=== PATIENT | female | born 1970 | race Caucasian/White ===

== ENCOUNTER → 2020-07-17 10:22 | Outpatient (BNVA) | payer OTHER, SELFPAY | PROVIDERS: PCP Internal Medicine; Referring Provider Internal Medicine; Visit Provider Obstetrics & Gynecology | DX: Z76.89 Persons encountering health services in other specified circumstances (principal) ==

== ENCOUNTER 2020-08-11 11:47 | Outpatient (REF) | payer SELFPAY ==
[2020-08-11 12:22] LABS: Cholesterol 168 mg/dL
== END 2020-08-11 11:48 | disposition home or self-care (01) ==
LOC: HO.LNC 11:47
PROVIDERS: Visit Provider Pathology Anatomic Pathology & Clinical Pathology
DX: Z13.220 Encounter for screening for lipoid disorders (principal)
CPT/HCPCS: 82465

== ENCOUNTER 2020-11-03 13:00 | Outpatient (REF) | payer SELFPAY ==
[2020-11-03 13:55] LABS: Cholesterol 181 mg/dL
== END 2020-11-03 13:01 | disposition home or self-care (01) ==
LOC: HO.LNC 13:00
PROVIDERS: Visit Provider Pathology Anatomic Pathology & Clinical Pathology
DX: Z13.89 Encounter for screening for other disorder (principal)
CPT/HCPCS: 36415; 82465

== ENCOUNTER 2021-02-19 09:15 | Outpatient (REF) | payer OTHER, SELFPAY ==
--- NOTE | ~2021-02-19 | CT_ITS ---
EXAMINATION: CT CHEST SCREENING CLINICAL INFORMATION: Lung cancer screening COMPARISON: None. TECHNIQUE: Multidetector volumetric CT imaging of the chest is performed without contrast using low dose technique. Additional 2D coronal and sagittal reformatted images and axial 3D maximum intensity projection (MIP) images are generated on the CT workstation. This CT examination was performed using dose optimization techniques as appropriate, variously including the following: *Automated exposure control *Adjustment of mA and/or kV according to patient size (this includes techniques or standardized protocols for targeted exams where dose is matched to indication/reason for exam; i.e. extremities or head) *Use of iterative reconstruction technique DLP: 48 mGy-cm FINDINGS: LUNGS: There is mild biapical pleural and parenchymal scarring. There is evidence of mild emphysema. There is a 4 x 6 mm peribronchial right upper lobe nodule axial image 114 series 5. There is a 2 mm right upper lobe nodule axial image 133 series 5. There is a 3 mm peripheral or subpleural right upper lobe nodule axial image 105 series 5. MEDIASTINUM: The mediastinum is normal. PLEURA: There is no pleural effusion. No pleural mass or thickening. AXILLA: No lymphadenopathy. UPPER ABDOMEN: Unremarkable OSSEOUS STRUCTURES: Unremarkable. CT/CT lung screening IMPRESSION: Mild emphysema. Small pulmonary nodules, largest measuring 4 x 6 mm in the right upper lobe. ASSESSMENT: Lung-RADS category 2: Benign RECOMMENDATION: Annual low-dose chest CT follow-up recommended.
== END 2021-02-19 09:16 | disposition home or self-care (01) ==
LOC: HO.CT 09:15
PROVIDERS: PCP Internal Medicine; Visit Provider Physician Assistant Medical
DX: Z12.2 Encounter for screening for malignant neoplasm of respiratory organs (principal); Z87.891 Personal history of nicotine dependence
CPT/HCPCS: 71271

== ENCOUNTER 2021-07-23 10:36 | Outpatient (REF) | payer OTHER, SELFPAY ==
[2021-07-23 12:54] LABS: Hematocrit 40.8 % (37-47); Mean Corpuscular HGB Conc 31.9 g/dl (31.0-35.0); Mean Corpuscular Hemoglobin 29.3 pg (27.0-33.0); Mean Corpuscular Volume 91.9 fL (80-98); Mean Platelet Volume 10.1 fL (9.4-12.3); Platelet Count 287 X10*3/uL (160-400); Red Blood Count 4.44 X10*6/uL (4.20-5.50); Red Cell Distribution Width 13.6 % (11.0-16.0); White Blood Count 6.7 X10*3/uL (4.8-10.8)
[2021-07-23 13:35] LABS: Thyroid Stimulating Hormone 1.57 uIU/mL (0.32-4.0)
[2021-07-23 16:04] LABS: CT PCR NOT DETECTED (Not Detect.); NG PCR NOT DETECTED (Not Detect.)
[2021-07-24 09:24] LABS: BV Int Neg Control Negative (Negative); BV Int Pos Control Positive (Positive)
[2021-07-24 21:51] LABS: Follicle Stimulating Hormone 8.6 mIU/mL
[2021-07-25 15:51] LABS: HPV mRNA E6/E7 rflx Not Detected (Not Detected)
== END 2021-07-23 10:37 | disposition home or self-care (01) ==
LOC: HO.LAB 10:36
PROVIDERS: PCP Internal Medicine; Visit Provider Advanced Practice Midwife
DX: Z01.419 Encounter for gynecological examination (general) (routine) without abnormal findings (principal); N93.9 Abnormal uterine and vaginal bleeding, unspecified; R23.2 Flushing; N92.1 Excessive and frequent menstruation with irregular cycle; F17.210 Nicotine dependence, cigarettes, uncomplicated; F12.90 Cannabis use, unspecified, uncomplicated; Z20.2 Contact with and (suspected) exposure to infections with a predominantly sexual mode of transmission; Z80.0 Family history of malignant neoplasm of digestive organs; Z80.41 Family history of malignant neoplasm of ovary
CPT/HCPCS: 36415; 83001; 84443; 85027; 87480; 87491; 87510; 87591; 87624; 87660; 88142

== ENCOUNTER 2021-08-17 15:44 | Outpatient (REF) | payer OTHER, SELFPAY ==
--- NOTE | ~2021-08-17 | US_ITS ---
EXAMINATION: US PELVIS AND TRANSVAGINAL CLINICAL INFORMATION: Abnormal uterine and vaginal bleeding. COMPARISON: Ultrasound pelvis 09/13/2019. TECHNIQUE: Ultrasound of the pelvis was performed using both transabdominal and transvaginal transducers along with Doppler. Transvaginal imaging was performed due to inadequate visualization transabdominally. FINDINGS: UTERUS: The uterus is anteverted and measures 8.7 x 4.4 x 5.7 cm in sagittal x AP x transverse dimensions. The double wall endometrial thickness is 0.4 mm. There is minimal fluid within the endometrial canal. The uterus is smooth in contour and has normal myometrial echogenicity. There are 2 echogenic lesions. The larger lesion in the right body of the uterus measures 2.8 x 2.3 x 2.9 cm, previously it measured 3.1 x 2.6 x 3.7 cm. The smaller lesion in the right lower body of the uterus measures 1.9 x 1.7 x 1.8 cm, previously it measured 1.5 x 0.9 x 1.2 cm. ADNEXA: Both ovaries are visualized. There is normal color flow to the adnexa. There is no ovarian torsion. There is no pelvic ascites or fluid collection. There are peristaltic bowel loops seen throughout the pelvis. Right ovary measures 2.4 x 1.3 x 1.4 cm and volume 2.8 mL. Left ovary measures 2.9 x 1.8 x 2.0 cm and volume 5.5 mL. There is an anechoic cyst measuring 1.6 x 1.9 x 1.7 cm. Previously the left ovary measured 3.6 x 1.9 x 2.9 cm. A cyst was visualized previous study likely a different cyst and measured 2.1 x 1.8 x 1.8 cm. US/US pelvic and transvaginal IMPRESSION: Two uterine fibroids as described above, grossly unchanged. Anechoic simple cyst left ovary. This is a different cyst from 2019. The right ovary is unremarkable. There is minimal fluid within the endometrial canal.
== END 2021-08-17 15:45 | disposition home or self-care (01) ==
LOC: HO.US 15:44
PROVIDERS: PCP Internal Medicine; Visit Provider Advanced Practice Midwife
DX: N93.9 Abnormal uterine and vaginal bleeding, unspecified (principal)
CPT/HCPCS: 76830; 76856

== ENCOUNTER → 2021-08-20 10:44 | Outpatient (BNVA) | payer OTHER, SELFPAY | PROVIDERS: PCP Internal Medicine; Visit Provider Advanced Practice Midwife ==

== ENCOUNTER 2021-09-24 12:01 | Outpatient (REF) | payer OTHER, SELFPAY ==
[2021-09-25 06:52] LABS: Follicle Stimulating Hormone 10.5 mIU/mL
== END 2021-09-24 12:02 | disposition home or self-care (01) ==
LOC: HO.WFDLDS 12:01
PROVIDERS: Advanced Practice Midwife; Visit Provider Internal Medicine
DX: Z00.00 Encounter for general adult medical examination without abnormal findings (principal); I10 Essential (primary) hypertension; R23.2 Flushing; N95.1 Menopausal and female climacteric states
CPT/HCPCS: 36415; 83001

== ENCOUNTER 2022-03-04 13:47 | Outpatient (REF) | payer OTHER, SELFPAY ==
--- NOTE | ~2022-03-04 | CT_ITS ---
EXAMINATION: CT CHEST SCREENING CLINICAL INFORMATION: Nicotine dependence. COMPARISON: CT lung screening 02/19/2021. TECHNIQUE: Multidetector volumetric CT imaging of the chest is performed without contrast using low dose technique. Additional 2D coronal and sagittal reformatted images and axial 3D maximum intensity projection (MIP) images are generated on the CT workstation. This CT examination was performed using dose optimization techniques as appropriate, variously including the following: *Automated exposure control *Adjustment of mA and/or kV according to patient size (this includes techniques or standardized protocols for targeted exams where dose is matched to indication/reason for exam; i.e. extremities or head) *Use of iterative reconstruction technique DLP: 38 mGy-cm. FINDINGS: LUNGS: There is bilateral apical pleural thickening and parenchymal scarring. There is a 4 mm nodule right upper lobe axial image 111/6, a 2 mm nodule seen centrally in the right upper lobe axial image 16/4 and a 3 mm subpleural nodule right upper lobe axial image 94/6 are all stable. MEDIASTINUM: The thyroid lobes are symmetrical and normal. The central trachea and bronchi are widely patent. Heart size and the great vessels are normal caliber. No abnormal-sized mediastinal or hilar lymph nodes seen. No pericardial effusion. PLEURA: There is no pleural effusion. No pleural mass or thickening. AXILLA: No lymphadenopathy. UPPER ABDOMEN: Visualized liver, spleen, pancreas and bilateral adrenal glands are unremarkable. OSSEOUS STRUCTURES: No aggressive lytic or sclerotic process seen. CT/CT lung screening IMPRESSION: Stable pulmonary nodules, largest measuring 4 mm in the right upper lobe; previously it measured 4 x 6 mm. No new nodules seen. No abnormal mediastinal adenopathy. ASSESSMENT: Lung-RADS category 2: Benign. RECOMMENDATION: Low-dose annual CT chest.
== END 2022-03-04 13:48 | disposition home or self-care (01) ==
LOC: HO.CT 13:47
PROVIDERS: Visit Provider Physician Assistant Medical
DX: F17.210 Nicotine dependence, cigarettes, uncomplicated (principal)
CPT/HCPCS: 71271

== ENCOUNTER 2022-08-05 10:34 | Outpatient (REF) | payer OTHER, SELFPAY ==
--- NOTE | ~2022-08-05 | US_ITS ---
EXAMINATION: US THYROID CLINICAL INFORMATION: Nontoxic goiter, unspecified. COMPARISON: None TECHNIQUE: Linear transducer grayscale and color Doppler examination with attention to the region of the thyroid. FINDINGS: SIZE: Measurements of the thyroid lobes and nodules are given in sagittal, anteroposterior and transverse dimensions respectively. Right Thyroid Lobe: 4.8 x 1.4 x 1.8 cm, volume 6.3 mL. Parenchyma: The gland echotexture is homogeneous. Thyroid vascularity is normal. Left Thyroid Lobe: 4.1 x 1.1 x 1.6 cm, volume 3.8 mL. Parenchyma: The gland echotexture is homogeneous. Thyroid vascularity is normal. Isthmus: 0.2 cm in maximum AP dimension. Estimated total number of nodules greater than or equal to 1 cm: 0. Polysomnographer nodules are described as follows: 1. Location: Left mid. Size: 0.7 x 0.5 x 0.3 cm, volume 0.063 mL. Nodule characteristics: Composition: Cystic(0). ACR TI-RADS total points: 0 ACR TI-RADS category: 1 2. Location: Right mid. Size: 0.6 x 0.4 x 0.3 cm, volume 0.035 mL. Nodule characteristics: Composition: Cystic(0). ACR TI-RADS total points: 0 ACR TI-RADS category: 1 3. Location: Right mid. Size: 0.6 x 0.5 x 0.3 cm, volume 0.057 mL. Nodule characteristics: Composition: Cystic(0). ACR TI-RADS total points: 0 ACR TI-RADS category: 1 There are multiple tiny anechoic cysts seen throughout both lobes. NODES: No lymphadenopathy is seen in the tissue surrounding the thyroid gland. US/US thyroid IMPRESSION: 1. Small subcentimeter thyroid cysts, not suspicious. The thyroid gland is otherwise unremarkable. 2. TR1 (0 point) and TR 2 (2 points): 3. TR4 (4-6 points): FNA if more than or equal to 1.5 cm in maximum dimension, followup ultrasound in 1, 2, 3 and 5 years if 1 to 1.4 cm in maximum dimension. 4. TR5 (more than or equal to 7 points): FNA if more than or equal to 1 cm in maximum dimension, followup ultrasound every year for 5 years if 0.5 to 0.9 cm in maximum dimension.
== END 2022-08-05 10:35 | disposition home or self-care (01) ==
LOC: HO.US 10:34
PROVIDERS: PCP Internal Medicine; Visit Provider Internal Medicine
DX: E04.9 Nontoxic goiter, unspecified (principal)
CPT/HCPCS: 76536

== ENCOUNTER 2022-08-29 12:31 | Outpatient (REF) | payer OTHER, SELFPAY ==
[2022-08-30 23:48] LABS: Follicle Stimulating Hormone 28.4 mIU/mL
== END 2022-08-29 12:32 | disposition home or self-care (01) ==
LOC: HO.WFDLDS 12:31
PROVIDERS: Visit Provider Advanced Practice Midwife
DX: N95.1 Menopausal and female climacteric states (principal); R23.2 Flushing
CPT/HCPCS: 36415; 83001

== ENCOUNTER → 2023-01-24 10:40 | Outpatient (BNVA) | payer OTHER, SELFPAY | PROVIDERS: PCP Internal Medicine; Visit Provider Advanced Practice Midwife | DX: Z30.41 Encounter for surveillance of contraceptive pills (principal) | CPT/HCPCS: 99212 ==

== ENCOUNTER 2023-06-23 10:10 | Outpatient (AMB) | payer OTHER, SELFPAY ==
--- NOTE | 2023-06-23 10:19 | A.OFFPC_ITS ---
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 Accompanied by: Self / Same As Patient Allergies oxycodone [From PERCOCET] Adverse Reaction (Mild, Verified 06/23/23 10:31) NAUSEA/VOMITING Medication List - Last Reconciled 06/23/23 by Richmond Sanchez MD aspirin 81 mg PO DAILY ferrous sulfate, dried ER (Iron (dried)) 160 mg PO DAILY multivitamin 1 tab PO DAILY norethindrone acetate (Aygestin) 5 mg PO DAILY 30 days omega-3 fatty acids (Fish Oil Concentrate) 1,000 mg PO DAILY sertraline 50 mg PO DAILY 90 days Tobacco use date assessed: 06/23/23 Dental Screening Dental Screen Date: 06/23/23 Did you have a dental visit in the last 12 months?: Yes Did you have a dental problem in the last 6 months where you did not have access to dental care?: No Was dental information given to patient?: Patient has dentist HPI annual PE HPI Details Patient comes in today for her annual physical examination States that she feels okay She denies any headaches or dizziness Denies any chest pains, no SOB No nausea/vomiting, no abdominal pain No change in bowel habits noted Denies any acute urinary symptoms She has a follow up appt with gynecology in July 2023 for 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 chef's assistant 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 and pap smear Has CT lung screening scheduled for later this week (Friday) and also has her mammogram scheduled for this Friday at [facility] Had a normal screening colonoscopy done a couple of years ago (2020) and she will be due for repeat colonoscopy in 2030 [facility] Medical History Mixed hyperlipidemia Personal history of nicotine dependence Dysplasia of cervix, low grade (LASHAWN 1) Smoker Depression Mild anemia History of LEEP (loop electrosurgical excision procedure) of cervix complicating Surgical History History of colonoscopy (~07/12/21) History of cervical biopsy (~01/13/98) History of breast lump/mass excision (~12/30/08) Status post hysteroscopic ablation of endometrium (~12/18/17) Family History Mother Breast cancer, Onset Age: 68 Parkinson disease Father Diabetes Hypertension Hyperlipidemia CAD (coronary artery disease) Maternal Grandfather Colon cancer Sister Hyperlipidemia Hypothyroidism Social History Housing: House Alcohol intake: current Alcohol intake frequency: a few times a week Patient Tobacco Use Status: Current everyday Tobacco user Tobacco use type: Cigarette Cigarette Packs Per Day: 1 Cigarettes Per Day: 20.0 Years Smoked: 37 (onset 13yo) e-Cigarette/Vaping Use: Never Used Second Hand Smoke Exposure: No Substance Use Type: Marijuana service: No Current occupational status: employed 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 1. Little interest or pleasure in doing things: not at all 2. Feeling down, depressed, or hopeless: not at all 3. Trouble falling or staying asleep, or sleeping too much: not at all 4. Feeling tired or having little energy: not at all 5. Poor appetite or overeating: not at all 6. Feeling bad about yourself - or that you are a failure or have let yourself or your family down: not at all 7. Trouble concentrating on things, such as reading the newspaper or watching television: not at all 8. Moving or speaking so slowly that other people could have noticed. Or the opposite - being so fidgety or restless that you have been moving around a lot more than usual: not at all 9. Thoughts that you would be better off or of hurting yourself in some way: not at all Total score: 0 Depression Screening Interpretation: Negative (is doing well on Rx) 76217 - PHQ-9 Billing: Yes Source: Developed by Drs. Collin Camara, Rosalie Olivo, Ayaz Cheek and colleagues, with an educational renetta from [employer]. Thrive Questionnaire Date Thrive assessed: 06/23/23 I am a: Patient What is your living situation today?: I have a steady place to live Within the past 12 months, did the food you bought not last and you didn't have the money to get more?: Never true Within the past 12 months, did you worry whether your food would run out before you got money to buy more?: Never true Do you have trouble paying for medicines?: No Do you have trouble getting transportation to medical appointments?: No Do you have trouble paying your heating and electricity bill?: No Do you have trouble taking care of your child, family member or friend?: No Do you have trouble with day-to-day activities such as bathing, preparing meals, shopping, managing finances, etc.?: No Are you currently unemployed and looking for a job?: No Are you interested in more education?: No Please select the resources that you would like help with: None Currently or been in a relationship where the following occur: no concerns reported AUDIT C Alcohol Use Questionnaire (AUDIT-C) 1. How often do you have a drink containing alcohol?: 2-3 times a week 2. How many drinks containing alcohol do you have on a typical day when you are drinking?: 1 or 2 3. How often do you have six or more drinks on one occasion?: Never Total Score: 3 Score Reviewed/Action Taken: Yes ANNALISA-7 AMB Questionnaire ANNALISA-7 Date ANNALISA - 7 assessed: 06/23/23 Feeling nervous, anxious, or on edge: 3 = Nearly every day Not being able to stop or control worryin = Nearly every day Worrying too much about different things: 3 = Nearly every day Trouble relaxin = Nearly every day Being so restless that it is hard to sit still: 3 = Nearly every day Becoming easily annoyed or irritable: 3 = Nearly every day Feeling afraid as if something awful might happen: 3 = Nearly every day Total ANNALISA-7 score (0-4 normal; 5-9 mild; 10-14 moderate; 15-21 severe): 21 Source: Developed by Drs. Collin Camara, Rosalie Olivo, Ayaz Cheek and colleagues, with an educational renetta from [employer]. Review of Systems Const Denies chills, Denies fatigue, Denies fever(s), Denies headache(s) and Denies malaise Eyes Denies blurry vision, Denies change in vision, Denies irritation and Denies itchy eyes ENT Denies dysphagia, Denies dizziness, Denies otalgia, Denies headache(s), Denies nasal congestion, Denies neck pain, Denies odynophagia, Denies sinus pain and Denies sore throat Card Denies chest pain, Denies rapid heart rate, Denies irregular heart rhythm, Denies palpitations and Denies dyspnea Resp Denies chest congestion, Denies cough, Denies dyspnea and Denies wheezing GI Denies abdominal pain, Denies bloating, Denies constipation, Denies dysphagia, Denies heartburn, Denies diarrhea, Denies nausea, Denies odynophagia and Denies vomiting Denies hematuria, Denies urinary frequency, Denies dysuria, Denies urinary incontinence and Denies urinary urgency Musc Denies back pain, Denies arthralgias, Denies joint swelling, Denies muscle weakness and Denies neck pain Skin/Breast Denies breast pain, Denies breast mass, Denies change in pigmentation, Denies lesions, Denies rash and Denies unusual bruising Neuro Denies dizziness, Denies headache(s) and Denies paresthesias Psych Denies anxiety and Denies depression Endo Denies fatigue and Denies palpitations Pete/Lymph Denies easy bruising Aller/Immun Denies itchy eyes and Denies wheezing Physical exam (Primary Care) Vital Signs: Last Vital Signs Pulse 82 06/23/23 10:20 BP 120/76 06/23/23 10:20 Pulse Ox 97 06/23/23 10:20 Oxygen Delivery Method Room Air 06/23/23 10:20 BMI result Body Mass Index 19.5 Tobacco/Smoking Status: Tobacco use Status Tobacco use date assessed 06/23/23 06/23/23 10:24 Patient Tobacco Use Status Current everyday Tobacco 06/23/23 10:24 Tobacco use type Cigarette 06/23/23 10:24 e-Cigarette/Vaping Use Never Used 06/23/23 10:24 PHQ-9: PHQ-9 Score PHQ-9: Total score 0 06/23/23 10:24 Depression Screening Interpretation: Negative (is doing well on Rx) Thrive Assessment: Date of Thrive Assessment Date Thrive assessed 06/23/23 06/23/23 10:24 Currently or been in a relationship where the following occur: no concerns reported Const General: no acute distress, alert and awake Orientation/consciousness: patient oriented x3 [facility] Head: Yes normocephalic and Yes atraumatic Ears: external ears normal, TM's normal bilaterally and EAC's normal General nose exam: No nasal discharge present Face and sinus: Yes normal facial exam and Yes sinuses nontender Teeth and gingiva: dentition normal Throat: Yes posterior oropharynx normal and Yes tonsils normal (no TP congestion) Eyes Eyelids: Yes eyelids normal Conjunctivae: conjunctivae normal Pupils: Equal, round and reactive pupils present EOM: EOMs intact bilaterally Neck Neck: Yes no lymphadenopathy and Yes supple Thyroid: Thyroid normal Resp Auscultation: clear to auscultation bilaterally, no rales and no wheezes Cardio Rate: regular rate Rhythm: regular rhythm Heart sounds: no murmurs GI Palpation (GI): Soft to palpation, nontender and No hepatosplenomegaly present Auscultation: normal bowel sounds General: Yes no CVA tenderness Back/Spine/Pelvis Back: no CVA tenderness Thoracic/Lumbar Spine: thoracic and lumbar spine normal to inspection Skin Lesions: no lesions Rashes: no rashes Neuro General: patient oriented x3, moves all extremities, no focal motor deficits and CN's II-XI intact bilaterally Cranial nerves: Yes Equal, round and reactive pupils present Cognition (Neuro): normal cognition Gait exam (Neuro): Normal gait present Extrem General: Yes no clubbing, cyanosis or edema Assessment and Plan Assessment & Plan (1) Annual physical exam: Code(s): Z00.00 - Encounter for general adult medical examination without abnormal findings Plan: Check labs She is up-to-date with her screening colonoscopy - due for repeat in 2030 Is scheduled for her yearly chef's assistant exam and pap smear in July 2023 and will be getting her annual mammogram done at [facility] this Friday She currently still has her menstrual periods although she states that they are slowing down so she is not yet due to start osteoporosis screening (2) Enlarged thyroid gland: Code(s): E04.9 - Nontoxic goiter, unspecified Plan: Thyroid US done in July 2022 revealed small subcentimeter thyroid cysts, not suspicious. The thyroid gland is otherwise unremarkable Recommendation is at least a followup ultrasound every year for 5 years if 0.5 to 0.9 cm in maximum dimension but as she currently has no symptoms, would like to hold off for a year if possible (3) Mixed hyperlipidemia: Code(s): E78.2 - Mixed hyperlipidemia Plan: Reinforced low cholesterol diet Continue Fish Oil capsules 1000 mg BID Will recheck her fasting lipids ZAC for follow up (4) Mild anemia: Code(s): D64.9 - Anemia, unspecified Plan: Corrected on her labs done last year - continue Ferrous Sulfate 324 mg (65 Fe) 1 tablet QD Will recheck her CBC ZAC and continue to monitor her CBC regularly (5) Depression: Code(s): F32.9 - Major depressive disorder, single episode, unspecified Qualifiers: Depression Type: unspecified Qualified Code(s): F32.9 - Major depressive disorder, single episode, unspecified Plan: Continue Sertraline 50 mg QD - has been doing very well on her current Rx (6) Pulmonary nodule: Code(s): R91.1 - Solitary pulmonary nodule Plan: CT lung screening done in February 2022 revealed stable pulmonary nodules, the largest measuring 4 mm in the right upper lobe; previously it measured 4 x 6 mm. No new nodules seen. No abnormal mediastinal adenopathy. Recommend continue annual low dose CT monitoring - is scheduled for repeat CT later this week (7) Smoker: Code(s): F17.200 - Nicotine dependence, unspecified, uncomplicated Plan: Counseled again on smoking cessation Plan To return in 1 year for her next annual physical examination Orders: Orders Complete Blood Count Auto Diff Today Z00.00 - Encounter for general adult medical examination without abnormal findings Lipid Panel Today E78.00 - Pure hypercholesterolemia, unspecified, Z00.00 - Encounter for general adult medical examination without abnormal findings UA CC w/rflx Micro + Cult Today R30.0 - Dysuria, Z00.00 - Encounter for general adult medical examination without abnormal findings Vitamin D 25-OH Total Today E55.9 - Vitamin D deficiency, unspecified, Z00.00 - Encounter for general adult medical examination without abnormal findings Comprehensive [place]. Panel Fast Today E78.00 - Pure hypercholesterolemia, unspecified, Z00.00 - Encounter for general adult medical examination without abnormal findings TSH reflex Free T4 Today E78.00 - Pure hypercholesterolemia, unspecified, Z00.00 - Encounter for general adult medical examination without abnormal findings Coding Level of Care Code Est Pt Prev Care 40-64y(00125) Diagnoses Annual physical exam Z00.00 Enlarged thyroid gland E04.9 Mixed hyperlipidemia E78.2 Mild anemia D64.9 Depression, unspecified depression type F32.9 Depression Type: unspecified Pulmonary nodule R91.1 Smoker F17.200
[2023-06-23 10:20] VITALS: BP 120/76; PULSE 82; O2SAT 97; BMI 19.5
== END 2023-06-23 10:49 | disposition home or self-care (01) ==
PROVIDERS: PCP Internal Medicine; Visit Provider Internal Medicine
DX: Z00.00 Encounter for general adult medical examination without abnormal findings (principal); E04.9 Nontoxic goiter, unspecified; F32.9 Major depressive disorder, single episode, unspecified; F17.210 Nicotine dependence, cigarettes, uncomplicated; E78.2 Mixed hyperlipidemia; D64.9 Anemia, unspecified; R91.1 Solitary pulmonary nodule
CPT/HCPCS: 99396

== ENCOUNTER 2023-06-27 12:45 | Outpatient (REF) | payer OTHER, SELFPAY ==
--- NOTE | ~2023-06-27 | CT_ITS ---
EXAMINATION: CT CHEST SCREENING CLINICAL INFORMATION: Follow-up pulmonary nodule; current smoker with 35 pack-year smoking history. COMPARISON: Prior CT examinations, most recently 03/04/2022. TECHNIQUE: Multidetector volumetric CT imaging of the chest is performed without contrast using low dose technique. Additional 2D coronal and sagittal reformatted images and axial 3D maximum intensity projection (MIP) images are generated on the CT workstation. This CT examination was performed using dose optimization techniques as appropriate, variously including the following: *Automated exposure control *Adjustment of mA and/or kV according to patient size (this includes techniques or standardized protocols for targeted exams where dose is matched to indication/reason for exam; i.e. extremities or head) *Use of iterative reconstruction technique DLP: 45 mGy-cm FINDINGS: LUNGS: At the lateral right apex (5:127), a 4 mm noncalcified nodule is seen. There is a 3 mm right upper lobe pleural-based lymph node versus a focus of pleural scarring (5:97). These nodules are unchanged from 02/19/2021. No new nodule, mass, infiltrate or groundglass opacity is seen. There is no generalized increase in peripheral interlobular septal markings. There is no small airway thickening. The central airways appear patent. MEDIASTINUM: The mediastinum is normal. CORONARY ARTERY CALCIFICATION: None visualized on this study. PLEURA: There is no pleural effusion. No pleural mass or thickening. AXILLA: No lymphadenopathy. UPPER ABDOMEN: Unremarkable OSSEOUS STRUCTURES: There is multi-level mild lower thoracic spondylosis. CT/CT lung screening IMPRESSION: Unremarkable examination. ASSESSMENT: Lung-RADS category 2: Benign RECOMMENDATION: Routine annual low-dose CT screening in 12 months.
== END 2023-06-27 12:46 | disposition home or self-care (01) ==
LOC: HO.CT 12:45
PROVIDERS: PCP Internal Medicine; Visit Provider Physician Assistant Medical
DX: Z12.2 Encounter for screening for malignant neoplasm of respiratory organs (principal); F17.210 Nicotine dependence, cigarettes, uncomplicated
CPT/HCPCS: 71271

== ENCOUNTER 2023-07-04 07:54 | Outpatient (REF) | payer OTHER, SELFPAY | END 2023-07-04 07:55 | disposition home or self-care (01) | LOC: HO.WFDLDS 07:54 | PROVIDERS: Visit Provider Internal Medicine | DX: Z00.00 Encounter for general adult medical examination without abnormal findings (principal); E55.9 Vitamin D deficiency, unspecified; E78.00 Pure hypercholesterolemia, unspecified; R30.0 Dysuria | CPT/HCPCS: 36415; 80053; 80061; 81001; 82306; 84443; 85025 ==

== ENCOUNTER 2023-07-25 12:11 | Outpatient (REF) | payer OTHER, SELFPAY ==
[2023-07-26 12:18] LABS: Follicle Stimulating Hormone 60.5 mIU/mL
== END 2023-07-25 12:12 | disposition home or self-care (01) ==
LOC: HO.WFDLDS 12:11
PROVIDERS: Visit Provider Advanced Practice Midwife
DX: R23.2 Flushing (principal)
CPT/HCPCS: 36415; 83001

== ENCOUNTER 2023-08-01 10:15 | Outpatient (AMB) | payer OTHER, SELFPAY ==
--- NOTE | 2023-08-01 10:28 | A.OFFVIS_ITS ---
Intake Vital Signs 08/01/23 10:29 Height 5 ft 8 in Weight 122 lb BMI 18.5 BP 114/60 Intake Visit Reasons: lab results Intake Note: ? kidney stones The patient agreed to use of a front office medical assistant during this encounter. Scribed for MELANIE Bill by Lizz Casanova front office medical assistant, on 08/01/2023 at 10:30 am EST Mosaic Floor Layer Required: No Information Interpreted: non-clinical & clinical Jigger Machine Operator: Jigger Machine Operator Present (Katarina Akhtar MP) Accompanied by: Self / Same As Patient Allergies oxycodone [From PERCOCET] Adverse Reaction (Mild, Verified 08/01/23 10:34) NAUSEA/VOMITING Post menopausal: Yes HPI HPI Comments History of Present Illness Details She presents for follow up of AUB. She was originally scheduled for AG, and is in a lot of pain today due to kidney stones. Went [facility] ED with kidney pain on Friday, has appointment with urology at [facility] next Friday. No period for 6 months and then 2 weeks ago had bleeding for 7 days with horrible pain. Hx of ablation. Saw life skills trainer specialist at [facility] last year, no further testing necessary at that time. Never started Aygestin. She was on OCP for cycle control and discontinued one month ago due to FSH testing. Hx of fibroids. Last 08/17/21. She prefers to defer any testing until after the holidays due to being out of work. Last pap smear 2020. Last mammogram 06/27/23. PENDING SALE TO [facility] Medical History Fibroid, uterine Mixed hyperlipidemia Personal history of nicotine dependence Dysplasia of cervix, low grade (LASHAWN 1) Smoker Depression Mild anemia History of LEEP (loop electrosurgical excision procedure) of cervix complicating Surgical History History of colonoscopy (~07/12/21) History of cervical biopsy (~10/11/97) History of breast lump/mass excision (~12/30/08) Status post hysteroscopic ablation of endometrium (~12/18/17) Family History Mother Breast cancer, Onset Age: 68 Parkinson disease Father Diabetes Hypertension Hyperlipidemia CAD (coronary artery disease) Maternal Grandfather Colon cancer Sister Hyperlipidemia Hypothyroidism Social History Housing: House Alcohol intake: current Alcohol intake frequency: a few times a week Patient Tobacco Use Status: Current everyday Tobacco user Tobacco use type: Cigarette Cigarette Packs Per Day: 1 Cigarettes Per Day: 20.0 Years Smoked: 37 (onset 13yo) e-Cigarette/Vaping Use: Never Used Second Hand Smoke Exposure: No Substance Use Type: Marijuana service: No Current occupational status: employed 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 Sexual orientation: Straight/Heterosexual Gender identity: Female Cognitive needs: No Hearing needs: No Vision needs: No Female Reproductive History Menstrual Age of Menarche: 12 Menopause type: natural Date of last pap smear: 07/24/21 Date of Mammogram: 06/27/23 Review of Systems Const All systems reviewed & are unremarkable except as noted in HPI and below Physical Exam Vital Signs: Last Vital Signs BP 114/60 08/01/23 10:29 BMI result Body Mass Index 18.5 Const General: cooperative, healthy appearing, no acute distress, well developed, alert and other (was weepy discussing renal issues and ED visit) Results Reviewed Results Reviewed: Laboratory Tests 08/29/22 07/25/23 12:40 12:15 FSH 28.4 60.5 Assessment & Plan Assessment & Plan (1) Abnormal uterine bleeding: Code(s): N93.9 - Abnormal uterine and vaginal bleeding, unspecified Plan: Patient deferred AG today. Reviewed FSH results with patient. Counseled on perimenopause vs menopause. Recommended staying off BC at this time. Repeat US in September for fibroid stability. Contact office with any AUB or concerns. RTO for AG and test results in September. (2) Fibroid, uterine: Code(s): D25.9 - Leiomyoma of uterus, unspecified (3) Encounter to discuss test results: Code(s): Z71.2 - Person consulting for explanation of examination or test findings Orders: Orders US pelvic and transvaginal Today D25.9 - Leiomyoma of uterus, unspecified, N93.9 - Abnormal uterine and vaginal bleeding, unspecified Coding Level of Care Code Est Pt Level 3 (58954) Diagnoses Abnormal uterine bleeding N93.9 Fibroid, uterine D25.9 Encounter to discuss test results Z71.2
[2023-08-01 10:29] VITALS: BP 114/60; BMI 18.5
== END 2023-08-01 10:52 | disposition home or self-care (01) ==
LOC: HO.HWS 10:16
PROVIDERS: PCP Internal Medicine; Visit Provider Advanced Practice Midwife
DX: N93.9 Abnormal uterine and vaginal bleeding, unspecified (principal); D25.9 Leiomyoma of uterus, unspecified; Z71.2 Person consulting for explanation of examination or test findings
CPT/HCPCS: 99213

== ENCOUNTER → 2023-08-01 10:15 | Outpatient (BNVA) | payer OTHER, SELFPAY | PROVIDERS: PCP Internal Medicine; Visit Provider Advanced Practice Midwife | DX: Z71.2 Person consulting for explanation of examination or test findings (principal); N93.9 Abnormal uterine and vaginal bleeding, unspecified; D25.9 Leiomyoma of uterus, unspecified | CPT/HCPCS: 99212 ==

== ENCOUNTER 2023-10-03 10:57 | Outpatient (REF) | payer OTHER, SELFPAY | END 2023-10-03 10:58 | disposition home or self-care (01) | LOC: HO.US 10:57 | PROVIDERS: PCP Internal Medicine; Visit Provider Advanced Practice Midwife | DX: N93.9 Abnormal uterine and vaginal bleeding, unspecified (principal); D25.9 Leiomyoma of uterus, unspecified | CPT/HCPCS: 76830; 76856 ==

== ENCOUNTER 2023-12-26 10:19 | Outpatient (AMB) | payer OTHER, SELFPAY ==
[2023-12-26 10:21] VITALS: BP 120/68; BMI 18.9
--- NOTE | 2023-12-26 10:21 | A.OFFVIS_ITS ---
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 She is doing well with no concerns. Attempting to eat a healthy diet with calcium and vitamin D and stays active with exercise. Currently sexually active. Denies any vaginal dryness or irritation. No menses since June. STI testing offered; she declined. Last FSH was 60.5. Last pap smear; 2020. Last mammogram; patient reports is scheduled at [facility]. Colonoscopy is UTD. Denies any family history of breast, ovarian or colon cancer. [facility] Medical History Fibroid, uterine Mixed hyperlipidemia Personal history of nicotine dependence Dysplasia of cervix, low grade (LASHAWN 1) Smoker Depression Mild anemia History of LEEP (loop electrosurgical excision procedure) of cervix complicating Surgical History History of colonoscopy (~07/12/21) History of cervical biopsy (~10/11/97) History of breast lump/mass excision (~12/30/08) Status post hysteroscopic ablation of endometrium (~12/18/17) Family History Mother Breast cancer, Onset Age: 68 Parkinson disease Father Diabetes Hypertension Hyperlipidemia CAD (coronary artery disease) Maternal Grandfather Colon cancer Sister Hyperlipidemia Hypothyroidism Social History Housing: House Alcohol intake: current Alcohol intake frequency: a few times a week Patient Tobacco Use Status: Current everyday Tobacco user Tobacco use type: Cigarette Cigarette Packs Per Day: 1 Cigarettes Per Day: 20.0 Years Smoked: 37 (onset 13yo) e-Cigarette/Vaping Use: Never Used Second Hand Smoke Exposure: No Substance Use Type: Marijuana service: No Current occupational status: employed 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 Sexual orientation: Straight/Heterosexual Gender identity: Female Cognitive needs: No Hearing needs: No Vision needs: No Female Reproductive History Menstrual Age of Menarche: 12 Menopause type: natural Total pregnancies: 0 Date of last pap smear: 07/24/21 Date of Mammogram: 06/27/23 Review of Systems Const All systems reviewed & are unremarkable except as noted in HPI and below Reports as per HPI Eyes Reports no additional complaints ENT Reports no additional complaints Card Reports no additional complaints Resp Reports no additional complaints GI Reports as per HPI and Reports no additional complaints Reports as per HPI Musc Reports no additional complaints Skin/Breast Reports as per HPI Neuro Reports no additional complaints Psych Reports no additional complaints Endo Reports no additional complaints Pete/Lymph Reports no additional complaints Aller/Immun Reports no additional complaints Physical Exam Vital Signs: Last Vital Signs BP 120/68 12/26/23 10:21 BMI result Body Mass Index 18.9 Const General: cooperative, healthy appearing, no acute distress, well developed and alert Orientation/consciousness: patient oriented x3 HEENT Head: Yes normal to inspection Eyes General: appearance normal, both eyes and all related structures Neck Neck: Yes normal visual inspection Thyroid: Thyroid normal Chest Chest palpation & inspection: normal inspection of the chest and other (no puckering, dimpling, peau de orange, retraction, discharge, masses) Breast/axilla inspection: normal inspection of the breasts Breast/axilla palpation: normal palpation of the breasts Resp Effort & Inspection: normal respiratory effort GI Inspection: Yes normal to inspection Palpation (GI): Soft to palpation Rectal Exam - Female: deferred General: Yes bladder normal to palpation External Female Exam: normal external appearance and normal appearance of the urethra Speculum Exam - Vagina: normal appearance of the vagina, normal palpation and normal vaginal discharge Speculum Exam - Cervix: normal appearance of the cervix and normal palpation Bimanual exam- vagina & uterus: normal bimanual exam, normal palpation, uterine size normal, bladder normal to palpation, normal palpation and non-tender Bimanual Exam- Adnexa, other: no masses Skin Other: Tanned, multiple nevi, freckles. General skin exam: no rashes or lesions noted Rashes: no rashes Neuro General: patient oriented x3 Cognition (Neuro): normal cognition Extrem General: Yes normal to inspection Psych Attitude: cooperative Thought process: Normal thought process present Assessment & Plan Assessment & Plan (1) Encounter for well woman exam with routine gynecological exam: Code(s): Z01.419 - Encounter for gynecological examination (general) (routine) without abnormal findings Plan Discussed: Current recommendations for pap smears per ASCCP guidelines. Breast awareness, periodic self breast exams and yearly mammogram. Maintain a healthy lifestyle, well balanced diet including Calcium 1,200 mg and Vitamin D 600 IU daily, and routine exercise. Advised continued follow-up with dermatology for skin evaluations yearly. Contact the office with any AUB. Patient verbalizes understanding and agrees to the plan of care. She was given opportunity to ask questions and all questions were answered to the best of my ability. RTO in 1 year for annual supervisor wash house exam. This note is constructed using voice recognition software. While every effort has been made to ensure accuracy, publishing director errors may have been included. Coding Level of Care Code Est Pt Prev Care 40-64y(20100) Diagnoses Encounter for well woman exam with routine gynecological exam Z01.419
== END 2023-12-26 10:59 | disposition home or self-care (01) ==
LOC: HO.HWS 10:19
PROVIDERS: PCP Internal Medicine; Visit Provider Advanced Practice Midwife
DX: Z01.419 Encounter for gynecological examination (general) (routine) without abnormal findings (principal)
CPT/HCPCS: 99396

== ENCOUNTER → 2023-12-26 10:19 | Outpatient (BNVA) | payer OTHER, SELFPAY | PROVIDERS: PCP Internal Medicine; Visit Provider Advanced Practice Midwife | DX: Z01.419 Encounter for gynecological examination (general) (routine) without abnormal findings (principal); Z78.0 Asymptomatic menopausal state | CPT/HCPCS: 99396 ==

== ENCOUNTER 2024-04-27 09:20 | Outpatient (AMB) | payer OTHER, SELFPAY ==
--- OUTSIDE RECORDS SUMMARY | 2024-04-27 09:22 | XMS_ITS | Continuity of Care Document ---
Author Organization [facility] Address [address] [place] [address]- Care Team Providers Care Side Laster Staple Name Role Phone Richmond Sanchez MD Primary Care Physician Encounter [facility] [place] Date(s): 07/29/23 - 07/29/[address] [address]- Encounter Diagnosis Nephrolithiasis(Final) - 07/29/23 Discharge Disposition: A-D/C Home Attending Physician: Tapan Farooq MD Admitting Physician: Tapan Farooq MD Referring Physician: Not on Staff, Referring MD Allergies, Adverse Reactions, Alerts No Known Allergies Medications Acidophilus Probiotic Blend oral capsule By Mouth, Daily, 0 Refills, Maintenance, 07/12/21 7:19:00 EDT, Partial fill upon patient request ifthe prescription is for a schedule II opioid drug. Start Date: 07/12/21 Status: Ordered aspirin 81 mg oral tablet, chewable 1 tablet = 81 mg, Chew, Daily, 0 Refills, Maintenance, 07/12/21 7:16:00 EDT, Chew Tablet, Partial fill upon patient request if the prescription is for a schedule II opioid drug. Start Date: 07/12/21 Stop Date: 08/11/21 Status: Ordered Daily Multi-Vitamins with Minerals By Mouth, Daily, 0 Refills, Maintenance, 03/30/21 9:33:00 EDT, Partial fill upon patient request ifthe prescription is for a schedule II opioid drug. Start Date: 03/30/21 Status: Ordered Dilaudid Inj 1 mg, Injection, IV Push Slowly, Every 15 minutes for 3 doses/times, PRN for Pain , Moderate, and SBP greater than 100, STAT, 07/29/23 12:13:00 EDT, Stop date Limited # of times Start Date: 07/29/23 Stop Date: 07/29/23 Status: Completed Ferrous Sulfate ER Refills 0, Maintenance, 07/12/21 7:19:00 EDT, Partial fill upon patient request if the prescriptionis for a schedule II opioid drug. Start Date: 07/12/21 Status: Ordered Fish Oil oral capsule 0 Refills, Maintenance, 07/12/21 7:16:00 EDT, Partial fill upon patient request if the prescriptionis for a schedule II opioid drug. Start Date: 07/12/21 Status: Ordered norethindrone 0.35 mg oral tablet 1 tablet = 0.35 mg, By Mouth, Daily, # 28 tablet, 0 Refills, Maintenance, 03/30/21 9:33:00 EDT, Tablet, Partial fill upon patient request if the prescription is for a schedule II opioid drug. Start Date: 03/30/21 Status: Ordered ondansetron 4 mg oral tablet 1 tablet = 4 mg, By Mouth, Every 8 hours, PRN Nausea & Vomiting, for 5 days, # 12 each, 0 Refills, Acute 08/03/23 17:05:00 EST, 07/29/23 17:05:00 EDT, Tablet, [facility]/pharmacy #[id number], Partial fill upon patient request if the prescription is for a schedule... Start Date: 07/29/23 Stop Date: 08/03/23 Status: Ordered oxyCODONE 5 mg oral tablet 5 mg, 1, tablet, By Mouth, Every 8 hours, PRN, for 5 days, # 10 tablet, Refills 0, Tot. Refills 0, Acute 08/03/23 17:06:00 EST, for pain, 07/29/23 17:06:00 EDT, Route to Pharmacy Electronically, [facility]/pharmacy #[id number], Partial fill upon patient request if... Start Date: 07/29/23 Stop Date: 08/03/23 Status: Ordered tamsulosin 0.4 mg oral capsule 0.4 mg, 1, capsule, By Mouth, Daily, # 90 capsule, Refills 0, Tot. Refills 0, Maintenance, 07/29/2317:06:00 EDT, Route to Pharmacy Electronically, [facility]/pharmacy #[id number], Partial fill upon patient request if the prescription is for a schedule II opioid d... Start Date: 07/29/23 Status: Ordered Urine Strainer Urine Strainer, See Instructions, # 1 each, Refills 0, Tot. Refills 0, Maintenance, Use strainer for urine to collet kidney stone and bring it to your doctors appointment, 07/29/23 17:06:00 EDT, Supply, 172, cm, 08/12/22 16:14:00 EST, Height Start Date: 07/29/23 Status: Ordered Vitamin C 1000 mg oral tablet 1 tablet = 1,000 mg, By Mouth, Daily, 0 Refills, Maintenance, 07/12/21 7:17:00 EDT, Partial fill upon patient request if the prescription is for a schedule II opioid drug. Start Date: 07/12/21 Status: Ordered Zoloft 50 mg oral tablet 1 tablet = 50 mg, By Mouth, Daily, # 30 tablet, 0 Refills, Maintenance, 03/30/21 9:32:00 EDT, Tablet, Partial fill upon patient request if the prescription is for a schedule II opioid drug. Start Date: 03/30/21 Status: Ordered Results Radiology Reports * Exam Date Time Procedure Performing Provider Status 07/29/23 2:[address] Abd/Pelvis W/ IV Contrast Only Kassandra Garcia; Auth (Verified) Notes: (CT Abd/Pelvis W/ IV Contrast Only) Reason For Exam: LLQ abdominal pain;Other: RESULT: CT Abd/Pelvis W/ IV Contrast Only CT Abd/Pelvis W/ IV Contrast Only Hx of Present Illness: R lower back pain; Reason: Other:; LLQ abdominal pain; Clinical Question(s):Abscess; infected stone; Order Comment: TECHNIQUE: Spiral CT through the abdomen and pelvis with IV contrast formatted in 3 planes. 75 cc of Omnipaque 300 was administered intravenously. This study was performed without oral contrast. Weight-based protocol using automatic tube modulation was used to optimize exposure parameters. CTDIvol Body: 10.60 mGy, DLP Body: 546 mGy*cm. COMPARISON: None. FINDINGS: Shopper View Findings, Lines and Tubes: None. Visualized Chest: Bibasilar dependent atelectasis. Small hiatal hernia. No pleural effusion. The heart is normal in size. No pericardial effusion. Diaphragm: Normal. Liver: Normal. Gallbladder: No CT evidence of gallbladder pathology. Bile ducts: No biliary ductal dilation. Spleen: Normal. Pancreas: Normal. Adrenal glands: Normal. Kidneys and ureters: Niml-gv-ccvtfoar right-sided hydronephrosis and hydroureter with a 4 mm stone at the level of the UVJ. There is right perinephric stranding concerning for calyceal rupture. Left kidneys unremarkable. Bladder: Normal. Reproductive organs: Unremarkable. Stomach, small bowel, and large bowel: There is moderate amount of stool within the ascending colon. The remaining portion of the colon is decompressed. Appendix: Normal. Peritoneum and retroperitoneum: No ascites or pneumoperitoneum. No omental or mesenteric lesions. Lymph nodes: No enlarged lymph nodes. Blood vessels: Normal. No aneurysm. No evidence of venous thrombosis. Abdominal and pelvic wall: Unremarkable. Bones: No acute abnormality. There is mild anterolisthesis of L4 on L5. There is severe disc degenerative disease at L5-S1 level. IMPRESSION: Mild right-sided obstructive uropathy with a 4 mm stone at the level of UVJ. An actionable message ([place]) has been communicated via the [employer] system on 07/29/2023 2:56 PM, Message ID [id number]. WSN: [id number] Ordering Physician: Jerry Faria Dictated By: Joy Card MD Dictated Date/Time: 07/29/23 2:56 pm Reviewed By: Joy Card MD Signed By: Joy Card MD Signed Date/Time: 07/29/23 2:56 pm Transcribed By: GISELA Transcribed Date/Time: 07/29/23 2:51 pm Vital Signs Most recent to oldest [Reference Range]: 1 2 3 Oxygen Saturation [94-100 %] 99 % (07/29/23 5:36 PM) 100 % (07/29/23 3:37 PM) 100 % (07/29/23 11:55 AM) Pulse Rate [55-90 bpm] 75 bpm (07/29/23 5:36 PM) 78 bpm (07/29/23 3:37 PM) 80 bpm (07/29/23 11:55 AM) Blood Pressure [90-138/55-84 mm Hg] 155/75mm Hg *H* (07/29/23 5:36 PM) 160/84mm Hg *H* (07/29/23 3:37 PM) 137/109mm Hg (07/29/23 11:55 AM) Respiratory Rate [16-30 br/min] 16 br/min (07/29/23 5:36 PM) 14 br/min *L* (07/29/23 3:37 PM) 18 br/min (07/29/23 1:15 PM) Temperature [96.8-100.4 DegF] 98.2 DegF (07/29/23 5:36 PM) Mode of Delivery (Oxygen) Room air (07/29/23 5:36 PM) Room air (07/29/23 3:37 PM) Room air (07/29/23 11:55 AM) Blood pressure sites Arm, right (07/29/23 5:36 PM) Arm, right (07/29/23 3:37 PM) Arm, left (07/29/23 11:55 AM) Temperature Route Oral (07/29/23 5:36 PM) Social History Social History Type Response Smoking Status 10 or more cigarette s (1/2 pack or more)/day in last 30 days entered on: 08/12/22 Sex EKG study * Event Display: EKG Authored Date: Patient Care team information Care Team Personnel Name: Daniel JUAREZ, Richmond Gusman Position: Reference Physician Member Role: PCP Address: Address: [address] [place] [address] [place] [id number]- Name: Jerry Faria DO Position: [facility] Resident Member Role: ED Resident Address: Address: [address] [place] [address]- Name: Jony Multani Position: [facility] ED TA [facility] Name: Tapan Farooq MD Position: [facility] ED Medicine MD Member Role: Admitting Physician Address: Address: [address] [place] [id number]- [place] Name: Ayaka Lobo RN Position: [facility] ED RN W/OE and Tasks Member Role: Patient Care Provider Care Team Related Persons Name: DERREKROSE MARYDAVE Address: home [address] [place] [address] Name: RYANNE JOHNS Address: [address] [place] [address]
--- OUTSIDE RECORDS SUMMARY | 2024-04-27 09:22 | XMS_ITS | Continuity of Care Document ---
Author Organization [facility] Maggie morriss [facility] Address [address] [place] [address]- Care Team Providers Care Gravity Prospecting Observer Name Role Phone Richmond Sanchez MD Primary Care Physician [place] [place] [facility] [address] [place], [place] [address] Allergies, Adverse Reactions, Alerts No Known Allergies [...] opioid drug. Start Date: 03/30/21 Status: Ordered Ferrous Sulfate ER Refills 0, Maintenance, 07/12/21 [...] opioid drug. Start Date: 03/30/21 Status: Ordered Vitamin C 1000 mg oral [...] opioid drug. Start Date: 03/30/21 Status: Ordered Social History Social History Type Response Smoking Status 10 or more cigarette s (1/2 pack or more)/day in last 30 days entered on: 08/12/22 Sex Patient Care team information Care Team Personnel Name: Richmond Sanchez MD Position: Reference Physician Member Role: PCP Address: Address: [address] [place] [address] [address] [place] [id number]- [place] Care Team Related Persons Name: DAVE ANGLIN Address: home [address] [place] [address] Name: RYANNE JOHNS Address: [address] [place] [address]
--- OUTSIDE RECORDS SUMMARY | 2024-04-27 09:22 | XMS_ITS | Continuity of Care Document ---
Author Organization [facility] Address [address] [place] [address]- Care Team Providers Care Cushion Maker Hand Name Role Phone Richmond Sanchez MD Primary Care Physician Encounter [facility] [place] Date(s): 08/08/23 - 09/10/[address] [address] Attending Physician: Shravan Ferguson MD Admitting Physician: Shravan Ferguson MD Allergies, Adverse Reactions, Alerts No Known [...] opioid drug. Start Date: 03/30/21 Status: Ordered tamsulosin 0.4 mg oral capsule 0.4 mg, 1, capsule, By Mouth, Daily, # 90 capsule, Refills 0, Tot. Refills 0, Maintenance, 07/29/2317:06:00 EDT, Route to Pharmacy Electronically, [facility]/pharmacy #[id number], Partial fill upon patient request if [...] Reference Physician Member Role: PCP Address: Address: [address] [place] [address] [place] [address]- Care Team Related Persons Name: DAVE ANGLIN Address: home [address] [place] [id number] Name: RYANNE JOHNS Address: home [address] [place] [address]
--- NOTE | 2024-04-27 09:34 | AM.OFFWIN_ITS ---
Intake Vital Signs 04/27/24 09:36 04/27/24 09:40 Height 5 ft 8 in Weight 122 lb 2 oz BMI 18.6 BP 130/80 Blood Pressure Location Lt brachial Position Standing Respiration 20 Pulse 120 H 106 H Pulse Source Palpation Temp 97.8 F Temp Source Oral Intake Visit Reasons: possible siatic/ very upset can't sit Intake Note: lower back and leg pain, pt unable to sit or lay down due to pain , pt take otc 800mg tab and gabapitine from one of her clients. Patient Tobacco Use Status: Current everyday Tobacco user Is last menstrual period known: No Post menopausal: Yes Patient : No Allergies oxycodone [From PERCOCET] Adverse Reaction (Mild, Verified 04/27/24 10:03) NAUSEA/VOMITING Medication List - Last Reconciled 04/27/24 by Jalyn Jimenez, [employer]- aspirin 81 mg PO DAILY ferrous sulfate, dried ER (Iron (dried)) 160 mg PO DAILY multivitamin 1 tab PO DAILY omega-3 fatty acids (Fish Oil Concentrate) 1,000 mg PO DAILY sertraline 50 mg PO DAILY 90 days HPI HPI Comments History of Present Illness Details 53-year-old female here today with chief complaints of low back pain. She reports a chronic history of sciatica which usually affects her left side, dating back several years now. Nine days ago she woke up with acute low back pain that initially felt like her sciatica on the left side. Left low back pain, radiates into her buttocks and then into her thigh. Over the next few days she did try taking Motrin without relief. 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 Like a Flamingo this then caused pain in the right low back as well as the right leg. She reports that both legs feel heavy and cramps and tingly at times. She is not sleeping because of the pain. She was able to get gabapentin from a friend and has been using that also without relief. Denies recent surgery, prolonged immobility, recent travel, sob, chest pain. + smoker She denies any fever, chills, trauma, changes in bowel or bladder, loss of function, or red flag symptoms associated with back pain. Exam: Awake alert, sitting in chair upon entry to exam room. Tearful and uncomfortable. PERRLA, EOMI Neck FROM No spinal tenderness, no tenderness over bilat SI joint. No CVAT bilat. SLR R causes pain in right low back. SLR on left negative. Hip thrust negative. Strength & tone normal. Reflexes normal bilat ankles, normal Right knee, unable to elicit on Left knee. Normal gait. Skin is clear w/o rash. No edema ble. + pedal pulses. Plan: Medrol dose pack, take w/ food. No NSAIDs while taking. APAP prn for break through pain. Muscle relaxer PRN. Supportive care. Edu on reasons to seek additional care. Has next fu with PCP 05/2024. Asked her if she would be intersted in referral to [facility] [place] mgmt or customer operations specialist; she stated yes. I have sent a message w/ this request to the PCP work group as i cannot place this referral at the [facility]. Pt aware. This note is constructed using voice recognition software. While every effort has been made to ensure accuracy in tmd teacher assistant, still errors may have been included Sometimes, these errors may affect the content or meaning of the given sentence . [facility] Medical History (Updated 04/27/24 @ 10:22 by Jalyn Jimenez, [facility]-) Nicotine dependence, cigarettes, uncomplicated Fibroid, uterine Mixed hyperlipidemia Dysplasia of cervix, low grade (LASHAWN 1) Smoker Depression Mild anemia History of LEEP (loop electrosurgical excision procedure) of cervix complicating Surgical History History of colonoscopy (~07/12/21) History of cervical biopsy (~10/11/97) History of breast lump/mass excision (~12/30/08) Status post hysteroscopic ablation of endometrium (~12/18/17) Family History Mother Breast cancer, Onset Age: 68 Parkinson disease Father Diabetes Hypertension Hyperlipidemia CAD (coronary artery disease) Maternal Grandfather Colon cancer Sister Hyperlipidemia Hypothyroidism Social History Housing: House Alcohol intake: current Alcohol intake frequency: a few times a week Patient Tobacco Use Status: Current everyday Tobacco user Tobacco use type: Cigarette Cigarette Packs Per Day: 1 Cigarettes Per Day: 20.0 Years Smoked: 37 (onset 13yo) e-Cigarette/Vaping Use: Never Used Second Hand Smoke Exposure: No Substance Use Type: Marijuana Patient : No service: No Current occupational status: employed 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 Plan . Medications: New methylprednisolone (Medrol (Mike)) PO PER PKG DIR 21 ea 0RF tizanidine (Zanaflex) use sparingly 4 mg PO TID PRN 15 tabs 0RF muscle spasticity Coding Level of Care Code Est Pt Level 4 (02943) Diagnoses Low back pain due to bilateral sciatica M54.41; M54.42
[2024-04-27 09:36] VITALS: BP 130/80; PULSE 120; RESP 20; TEMP 36.6; BMI 18.6
[2024-04-27 09:40] VITALS: PULSE 106
== END 2024-04-27 10:13 | disposition home or self-care (01) ==
PROVIDERS: PCP Internal Medicine; Visit Provider Nurse Practitioner Family
DX: M54.41 Lumbago with sciatica, right side (principal); M54.42 Lumbago with sciatica, left side
CPT/HCPCS: 99214

== ENCOUNTER 2024-06-28 10:21 | Outpatient (AMB) | payer OTHER, SELFPAY ==
[2024-06-28 10:25] VITALS: BP 100/62; PULSE 86; O2SAT 97; BMI 19.1
--- NOTE | 2024-06-28 10:25 | MHC.PC.OV ---
Vital Signs 06/28/24 10:25 Height 5 ft 8 in Weight 125 lb 8 oz BMI 19.1 BP 100/62 Blood Pressure Location Lt brachial Position Sitting Pulse 86 Pulse Source Pulse Oximeter Pulse Oximetry (%) 97 Oxygen Delivery Method Room Air Intake Visit Reasons: Annual Exam Associate Loan Officer Required: No Accompanied by: Self / Same As Patient Allergies oxycodone [From PERCOCET] Adverse Reaction (Mild, Verified 06/28/24 10:46) NAUSEA/VOMITING Medication List - Last Reconciled 06/28/24 by Richmond Sanchez MD aspirin 81 mg PO DAILY ferrous sulfate, dried ER (Iron (dried)) 160 mg PO DAILY lidocaine 5% 2 patches topical DAILY PRN 7 days multivitamin 1 tab PO DAILY omega-3 fatty acids (Fish Oil Concentrate) 1,000 mg PO DAILY sertraline 50 mg PO DAILY 90 days Tobacco use date assessed: 06/28/24 Dental Screening Dental Screen Date: 06/28/24 Did you have a dental visit in the last 12 months?: Yes Did you have a dental problem in the last 6 months where you did not have access to dental care?: No Was dental information given to patient?: Patient has dentist HPI Annual Exam HPI Details Patient comes in today for her annual physical examination States that she has been dealing with a lot of issues lately Relates that she has been experiencing recurrent joint pains lately, especially in her hands/fingers Thinks that a lot of these are likely due to arthritis changes (OA) and possubly trigger finger as a couple of her fingers tend to lock up often recently 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 States that she also had some x-rays done at [facility] sometime back in March 2024 and was advised that they found something in one of her ovaries and she has been advised to see gynecology Z[facility] for further evaluation but she has not been able to reach or contact her gynecology office lately for some reason She has also been experiencing recurrent lower back pain and right-sided sciatica pain lately Relates that she got her first back injection last Friday at [facility] but has not really noticed much relief yet on her low back pain She denies any headaches or dizziness Denies any chest pains, no increased SOB No nausea/vomiting, no abdominal pain No change in bowel habits noted She denies any acute urinary symptoms She had her last mammogram done in May 2023 and is reportedly scheduled for her annual mammogram next week on 07/09/24 Her screening colonoscopy was done on 07/12/2021 - procedure was normal and she was recommended to undergo repeat colonoscopy in 10 years (2030) Her last menstrual period was just under a year ago so she is not yet due to start BMD screening She had her gynecology exam last done on 12/26/23 and her next year's appt is on 01/07/25 but she has been trying to get in to see them regarding her recent findings on her ovaries but she has not yet been successful in doing so [facility] Medical History (Updated 12/20/24 @ 03:35 by Richmond Sanchez MD) Nicotine dependence, cigarettes, uncomplicated Fibroid, uterine Mixed hyperlipidemia Dysplasia of cervix, low grade (LASHAWN 1) Smoker Depression Mild anemia History of LEEP (loop electrosurgical excision procedure) of cervix complicating Surgical History (Updated 06/28/24 @ 10:48 by Richmond Sanchez MD) History of colonoscopy (~07/12/21) History of cervical biopsy (~10/11/97) History of breast lump/mass excision (~12/30/08) Status post hysteroscopic ablation of endometrium (~12/18/17) Family History Mother Breast cancer, Onset Age: 68 Parkinson disease Father Diabetes Hypertension Hyperlipidemia CAD (coronary artery disease) Maternal Grandfather Colon cancer Sister Hyperlipidemia Hypothyroidism Social History Housing: House Alcohol intake: current Alcohol intake frequency: a few times a week Patient Tobacco Use Status: Current everyday Tobacco user Tobacco use type: Cigarette Cigarette Packs Per Day: 1 Cigarettes Per Day: 20.0 Years Smoked: 37 (onset 13yo) e-Cigarette/Vaping Use: Never Used Second Hand Smoke Exposure: No Substance Use Type: Marijuana service: No Current occupational status: employed 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 1. Little interest or pleasure in doing things: not at all 2. Feeling down, depressed, or hopeless: not at all 3. Trouble falling or staying asleep, or sleeping too much: not at all 4. Feeling tired or having little energy: not at all 5. Poor appetite or overeating: not at all 6. Feeling bad about yourself - or that you are a failure or have let yourself or your family down: not at all 7. Trouble concentrating on things, such as reading the newspaper or watching television: not at all 8. Moving or speaking so slowly that other people could have noticed. Or the opposite - being so fidgety or restless that you have been moving around a lot more than usual: not at all 9. Thoughts that you would be better off or of hurting yourself in some way: not at all Total score: 0 Depression Screening Interpretation: Negative Depression Screening Done: Yes 45059 - PHQ-9 Billing: Yes Source: Developed by Drs. Collin Camara, Rosalie Olivo, Ayaz Cheek and colleagues, with an educational renetta from [employer]. Thrive Questionnaire Date Thrive assessed: 06/28/24 I am a: Patient What is your living situation today?: I have a steady place to live Within the past 12 months, did the food you bought not last and you didn't have the money to get more?: Never true Within the past 12 months, did you worry whether your food would run out before you got money to buy more?: Never true Do you have trouble paying for medicines?: No Do you have trouble getting transportation to medical appointments?: No Do you have trouble paying your heating and electricity bill?: No Do you have trouble taking care of your child, family member or friend?: No Do you have trouble with day-to-day activities such as bathing, preparing meals, shopping, managing finances, etc.?: No Are you currently unemployed and looking for a job?: No Are you interested in more education?: No Please select the resources that you would like help with: None Currently or been in a relationship where the following occur: No concerns reported THRIVE Score: 0 AUDIT C Alcohol Use Questionnaire (AUDIT-C) 1. How often do you have a drink containing alcohol?: 2-3 times a week 2. How many drinks containing alcohol do you have on a typical day when you are drinking?: 3 or 4 3. How often do you have six or more drinks on one occasion?: Less than monthly Total Score: 5 Score Reviewed/Action Taken: Yes ANANLISA-7 AMB Questionnaire ANNALISA-7 Date ANNALISA - 7 assessed: 06/28/24 Feeling nervous, anxious, or on edge: 0 = Not at all Not being able to stop or control worryin = Not at all Worrying too much about different things: 0 = Not at all Trouble relaxin = Not at all Being so restless that it is hard to sit still: 0 = Not at all Becoming easily annoyed or irritable: 0 = Not at all Feeling afraid as if something awful might happen: 0 = Not at all Total ANNALISA-7 score (0-4 normal; 5-9 mild; 10-14 moderate; 15-21 severe): 0 Source: Developed by Drs. Collin Camara, Rosalie Olivo, Ayaz Cheek and colleagues, with an educational renetta from [employer]. Review of Systems Const Denies chills, Reports fatigue, Denies fever(s), Denies headache(s) and Denies malaise Eyes Denies blurry vision, Denies change in vision, Denies irritation and Denies itchy eyes ENT Denies dysphagia, Denies dizziness, Denies otalgia, Denies headache(s), Denies nasal congestion, Denies neck pain, Denies odynophagia, Denies sinus pain and Denies sore throat Card Denies chest pain, Denies rapid heart rate, Denies irregular heart rhythm, Denies palpitations and Denies dyspnea Resp Denies chest congestion, Denies cough, Denies dyspnea and Denies wheezing GI Denies abdominal pain, Denies bloating, Denies constipation, Denies dysphagia, Denies heartburn, Denies diarrhea, Denies nausea, Denies odynophagia and Denies vomiting Denies hematuria, Denies urinary frequency, Denies dysuria, Denies urinary incontinence and Denies urinary urgency Musc Reports as per HPI, Reports back pain (over the lower back - recurrent; radiating down R leg at times), Reports arthralgias (involving multiple joints, especially on the hands/fingers - see HPI), Denies joint swelling, Denies muscle weakness and Denies neck pain Skin/Breast Denies breast pain, Denies breast mass, Denies change in pigmentation, Denies lesions, Denies rash and Denies unusual bruising Neuro Denies dizziness, Denies headache(s) and Denies paresthesias Psych Denies anxiety and Denies depression Endo Reports fatigue and Denies palpitations Pete/Lymph Denies easy bruising Aller/Immun Denies itchy eyes and Denies wheezing Physical exam (Primary Care) Vital Signs: Last Vital Signs Pulse 86 06/28/24 10:25 BP 100/62 06/28/24 10:25 Pulse Ox 97 06/28/24 10:25 Oxygen Delivery Method Room Air 06/28/24 10:25 BMI result Body Mass Index 19.1 Tobacco/Smoking Status: Tobacco use Status Tobacco use date assessed 06/28/24 06/28/24 10:26 Patient Tobacco Use Status Current everyday Tobacco 06/28/24 10:26 Tobacco use type Cigarette 06/28/24 10:26 e-Cigarette/Vaping Use Never Used 06/28/24 10:26 PHQ-9: PHQ-9 Score PHQ-9: Total score 0 07/05/24 09:23 Depression Screening Interpretation: Negative Thrive Assessment: Date of Thrive Assessment Date Thrive assessed 06/28/24 06/28/24 10:26 Currently or been in a relationship where the following occur: No concerns reported Const General: no acute distress, alert and awake Orientation/consciousness: patient oriented x3 HENMT Head: Yes normocephalic and Yes atraumatic Ears: external ears normal, TM's normal bilaterally and EAC's normal General nose exam: No nasal discharge present Face and sinus: Yes normal facial exam and Yes sinuses nontender Teeth and gingiva: dentition normal Throat: Yes posterior oropharynx normal and Yes tonsils normal (no TP congestion) Eyes Eyelids: Yes eyelids normal Conjunctivae: conjunctivae normal Pupils: Equal, round and reactive pupils present EOM: EOMs intact bilaterally Neck Neck: Yes no lymphadenopathy and Yes supple Thyroid: Thyroid normal Resp Auscultation: clear to auscultation bilaterally, no rales and no wheezes Cardio Rate: regular rate Rhythm: regular rhythm Heart sounds: no murmurs GI Palpation (GI): Soft to palpation, nontender and No hepatosplenomegaly present Auscultation: normal bowel sounds General: Yes no CVA tenderness Back/Spine/Pelvis Back: no CVA tenderness Thoracic/Lumbar Spine: lumbar spinal tenderness Skin Lesions: no lesions Rashes: no rashes Neuro General: patient oriented x3, moves all extremities, no focal motor deficits and CN's II-XI intact bilaterally Cranial nerves: Yes Equal, round and reactive pupils present Cognition (Neuro): normal cognition Gait exam (Neuro): Normal gait present Extrem General: Yes no clubbing, cyanosis or edema Right upper extremity: Extremity exam: right hand Details: tenderness (involving all fingers) and no swelling Left upper extremity: hand Details: tenderness (involving all fingers) and no swelling Coding Level of Care Code Est Pt Prev Care 40-64y(08032) Diagnoses Annual physical exam Z00.00 Adnexal cyst N94.9 Mixed hyperlipidemia E78.2 Mild anemia D64.9 Pulmonary nodule R91.1 Depression, unspecified depression type F32.9 Depression Type: unspecified Smoker F17.200
== END 2024-06-28 11:10 | disposition home or self-care (01) ==
PROVIDERS: PCP Internal Medicine; Visit Provider Internal Medicine
DX: Z00.00 Encounter for general adult medical examination without abnormal findings (principal); N94.9 Unspecified condition associated with female genital organs and menstrual cycle; E78.2 Mixed hyperlipidemia; D64.9 Anemia, unspecified; R91.1 Solitary pulmonary nodule; F32.9 Major depressive disorder, single episode, unspecified; F17.200 Nicotine dependence, unspecified, uncomplicated

== ENCOUNTER → 2024-06-28 10:21 | Outpatient (BNVA) | payer OTHER, SELFPAY | PROVIDERS: PCP Internal Medicine; Visit Provider Internal Medicine ==

== ENCOUNTER 2024-07-01 07:45 | Outpatient (REF) | payer OTHER, SELFPAY ==
[2024-07-01 11:16] LABS: MANUAL DIFF FLAG NO
[2024-07-01 11:29] LABS: Basophils Absolute Auto 0.1 X10*3/uL (0.0-0.2); Basophils Percent Auto 0.7 % (0-2); Eosinophils Absolute Auto 0.3 X10*3/uL (0.0-0.4); Eosinophils Percent Auto 3.9 % (0-4); Hematocrit 36.4 % (37.0-47.0); Hemoglobin 11.7 g/dl (12.0-16.0); Imm Gran Abs Auto 0.02 X10*3/uL (0.00-0.03); Imm Gran Pct Auto 0.3 % (0.0-0.4); Lymphocytes Absolute Auto 2.4 X10*3/uL (1.2-4.9); Lymphocytes Percent Auto 36.6 % (20-40); Mean Corpuscular HGB Conc 32.1 g/dl (31.0-35.0); Mean Corpuscular Hemoglobin 28.7 pg (27.0-33.0); Mean Corpuscular Volume 89.2 fL (80.0-98.0); Mean Platelet Volume 9.6 fL (9.4-12.3); Monocytes Absolute Auto 0.5 X10*3/uL (0.1-1.2); Monocytes Percent Auto 7.8 % (2-11); Neutrophils Absolute Auto 3.4 x10*3/uL (2.0-8.3); Neutrophils Percent Auto 50.7 % (45-73); Platelet Count 347 X10*3/uL (160-400); Red Blood Count 4.08 X10*6/uL (4.20-5.50); Red Cell Distribution Width 15.3 % (11.0-16.0); White Blood Count 6.7 X10*3/uL (4.8-10.8)
[2024-07-01 11:56] LABS: Alanine Aminotransferase 21 U/L (0-31); Albumin Level 4.5 g/dL (3.5-5.0); Alkaline Phosphatase 58 U/L (39-117); Anion Gap 13 (12-20); Aspartate Amino Transferase 18 U/L (5-31); Bilirubin Total 0.5 mg/dL (0.0-1.0); Blood Urea Nitrogen 18 mg/dL (9-16); Calcium 9.8 mg/dL (8.4-10.2); Carbon Dioxide 26 mmol/L (22-29); Chloride 106 mmol/L (96-108); Cholesterol 226 mg/dL (<200); Estimated Glomerular Filt Rate > 60; Glucose Fasting 102 mg/dL (60-99); HDL Cholesterol 87 mg/dL (>40); LDL Cholesterol Calculated 124 mg/dL (<100); Potassium 3.7 mmol/L (3.3-5.1); Sodium 141 mmol/L (135-145); Triglycerides 79 mg/dL (<150)
[2024-07-01 11:58] LABS: TSH reflex Free T4 1.97 uIU/mL (0.32-4.0); Vitamin D 25-OH Total 87.2 ng/mL (>30)
[2024-07-01 12:30] LABS: Appearance Urine Clear; Color Urine Straw; Glucose Urine UA Negative (Negative); Leukocyte Esterase Urine Negative (Negative); Nitrite Urine Negative (Negative); PH 6.5 (5.0-9.0); Specific Gravity - Urine 1.015 (1.005-1.025); Urine Blood Negative (Negative); Urine Ketones Negative (Negative); Urine Protein Negative (Neg-Trace)
== END 2024-07-01 07:46 | disposition home or self-care (01) ==
LOC: HO.WFDLDS 07:45
PROVIDERS: Visit Provider Internal Medicine
DX: Z00.00 Encounter for general adult medical examination without abnormal findings (principal); E78.00 Pure hypercholesterolemia, unspecified; E55.9 Vitamin D deficiency, unspecified; R30.0 Dysuria; D64.9 Anemia, unspecified
CPT/HCPCS: 36415; 80053; 80061; 81003; 82306; 84443; 85025

== ENCOUNTER 2024-07-09 12:37 | Outpatient (REF) | payer OTHER, SELFPAY ==
--- NOTE | ~2024-07-09 | CT_ITS ---
EXAMINATION: CT LOW-DOSE SCREENING CHEST WITHOUT CONTRAST CLINICAL INFORMATION: Nicotine dependence, cigarettes, uncomplicated. The patient is a current smoker with a 40 pack-year history of smoking. COMPARISON: Multiple prior CT scans of the chest, the most recent of which is dated 06/27/2023 and the most remote of which is dated 02/19/2021. TECHNIQUE: Multidetector volumetric CT imaging of the chest is performed on a Siemens SOMATOM Definition scanner without contrast using low dose technique. Additional 2D coronal and sagittal reformatted images and axial 3D maximum intensity projection (MIP) images are generated on the CT workstation. This CT examination was performed using dose optimization techniques as appropriate, variously including the following: *Automated exposure control *Adjustment of mA and/or kV according to patient size (this includes techniques or standardized protocols for targeted exams where dose is matched to indication/reason for exam; i.e. extremities or head) *Use of iterative reconstruction technique TOTAL EXAM DLP: 42 mGy-cm. CTDIvol: 1.15 mGy. FINDINGS: PULMONARY NODULES: A 3 mm right apical nodule is seen and unchanged (5:126, compare prior 5:127). No new, increasing sized or suspicious lung nodules seen. LUNGS: Lungs are well expanded. Biapical pleural-parenchymal scarring is seen. There is mild emphysema along with mild bronchial thickening without bronchiectasis. MEDIASTINUM: No mediastinal, hilar or axillary adenopathy or free fluid collection. CORONARY ARTERY CALCIFICATION: None visualized on this study. THYROID GLAND: Unremarkable to the extent seen. CARDIOVASCULAR STRUCTURES: Aortic and heart size normal. No pericardial effusion. CHEST WALL/AXILLA: Unremarkable. UPPER ABDOMEN: Included portions of the solid organs in the upper abdomen unremarkable on noncontrast imaging. OSSEOUS STRUCTURES: No suspicious focal findings. CT/CT lung screening IMPRESSION: No findings seen suspicious for malignancy. ASSESSMENT: 1. Lung-RADS Category 2: Benign appearance or behavior of nodules. N/A 2. Lung-RADS Category S: Negative. There are no clinically significant or potentially clinically significant findings not related to the lungs requiring urgent additional evaluation. RECOMMENDATION: Continued routine annual low-dose CT lung screening in 1 year is recommended. An order for CT CHEST LOW DOSE CANCER SCREENING ([id number]) can be placed. Electronically signed by: Pedro Pablo Solis MD 08/21/2024 03:02 PM CHRISTOPH MAJOR
== END 2024-07-09 12:38 | disposition home or self-care (01) ==
LOC: HO.CT 12:37
PROVIDERS: PCP Internal Medicine; Visit Provider Physician Assistant Medical
DX: Z12.2 Encounter for screening for malignant neoplasm of respiratory organs (principal); F17.210 Nicotine dependence, cigarettes, uncomplicated
CPT/HCPCS: 71271

== ENCOUNTER 2024-07-30 10:59 | Outpatient (AMB) | payer OTHER, SELFPAY ==
--- NOTE | 2024-07-30 11:05 | A.SPINEOV_ITS ---
Vital Signs 07/30/24 11:06 Height 5 ft 8 in Weight 130 lb BMI 19.8 Intake Visit Reasons: bulging disc/lower back pain/spinal stonosis Intake Note: Ms. Cadena is here today c/o Lower back pain with numbness on legs. Funding Specialist Required: No Allergies oxycodone [From PERCOCET] Adverse Reaction (Mild, Verified 06/28/24 10:46) NAUSEA/VOMITING Physical Exam Vital Signs: BMI result Body Mass Index 19.8 Assessment & Plan Assessment & Plan (1) Low back pain due to bilateral sciatica: Code(s): M54.41 - Lumbago with sciatica, right side; M54.42 - Lumbago with sciatica, left side Category: Medical Plan Dear colleague On 07/30/2024 I saw for 2nd opinion Sally Cadena with a chief complaint of back pain and bilateral leg pain. 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 On April 19 she developed severe back pain radiating down both legs. The pain was so bad that she was admitted for pain control. Initially the pain in her legs increase with walking and standing and improved when she sat down. Over time the left leg symptoms disappeared. She has mild residual symptoms in her right leg. When she stands in a flexed position while shaving her legs she notices radiation down her right leg. Otherwise she is almost completely pain-free. 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 She is no longer taking pain medications with the exception of the Tylenol codeine for her arthritis. 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 Physical Exam: Pleasant female. She is not in obvious agony. Her neurological exam is intact for motor sensation or reflexes. She is able to move her back in all directions without pain. Straight leg raise is negative. Radiological Studies: An MRI of the lumbar spine was only partially completed due to claustrophobia. The sagittal T2 images show moderate stenosis at L4-5. In addition, there is lumbar degenerative disc disease L5-S1 with any collapse disc and endplate Modic changes. A CT scan of the lumbar spine shows moderat e-to-severe L4-5 spinal stenosis Impression/Plan: The history suspicious for neurogenic claudication that fortunately resolved spontaneously. She is still mildly symptomatic but is currently to function normally. Therefore, I do not recommend a surgical intervention. I advised her to return to my office if the symptoms progress. Thank you for allowing me to participate in your patients care. total time spent was 50 minutes in counseling ,coordination of plan, personal review of imaging, surgical decision making and subsequent plan Leonid Hillman MD, PhD Spine Fellowship Trained Neurosurgeon Director, [facility] Coding Level of Care Code New Pt Level 4 (45659) Diagnoses Low back pain due to bilateral sciatica M54.41; M54.42
[2024-07-30 11:06] VITALS: BMI 19.8
== END 2024-07-30 12:30 | disposition home or self-care (01) ==
LOC: HO.HNS 10:59
PROVIDERS: PCP Internal Medicine; Referring Provider Internal Medicine; Visit Provider Neurological Surgery
DX: M54.41 Lumbago with sciatica, right side (principal); M54.42 Lumbago with sciatica, left side
CPT/HCPCS: 99204

== ENCOUNTER → 2024-07-30 10:59 | Outpatient (BNVA) | payer OTHER, SELFPAY | PROVIDERS: PCP Internal Medicine; Referring Provider Internal Medicine; Visit Provider Neurological Surgery | DX: M54.41 Lumbago with sciatica, right side (principal); M54.42 Lumbago with sciatica, left side | CPT/HCPCS: 99202 ==

== ENCOUNTER 2024-08-09 09:54 | Outpatient (REF) | payer OTHER, SELFPAY ==
--- NOTE | ~2024-08-09 | US_ITS ---
EXAMINATION:US PELVIS TRANSABDOMINAL AND TRANSVAGINAL CLINICAL INFORMATION: N94.9 - Unspecified condition associated with female genital organs and ... COMPARISON: September 2023 LMP: Postmenopausal FINDINGS: UTERUS: The uterus is anteverted. Size: 6.1 x 3.5 x 4.9 cm. Uterine mass: Multiple uterine masses likely fibroids measuring up to 2.3 cm and 1.8 cm not significantly changed from prior exam allowing for interobserver variability. Cervix: Grossly unremarkable. Endometrium: No ultrasound evidence of endometrial lesion. endometrial thickness measures 0.3 cm ADNEXA: Normal Right ovary: Normal in size. Left ovary: Normal in size. Doppler exam: Normal Doppler flow identified in both ovaries. FREE FLUID: Trace amount of free fluid. OTHER FINDINGS: None US/US pelvic and transvaginal IMPRESSION: 1. Redemonstration of multiple uterine masses likely fibroids, not significantly changed allowing for interobserver variability. 2. Exam otherwise normal. Electronically signed by: Casimiro Varela MD 09/25/2024 03:36 PM [facility]
== END 2024-08-09 09:55 | disposition home or self-care (01) ==
LOC: HO.US 09:54
PROVIDERS: PCP Internal Medicine; Visit Provider Internal Medicine
DX: N94.9 Unspecified condition associated with female genital organs and menstrual cycle (principal)
CPT/HCPCS: 76830; 76856

== ENCOUNTER 2025-01-06 10:08 | Outpatient (AMB) | payer OTHER, SELFPAY ==
--- NOTE | 2025-01-06 10:09 | A.OFFVIS_ITS ---
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 History of fibroids. She is doing well with no special education assistant concerns. Menopausal x 1.5yrs. Has no bleeding or other symptoms. Currently sexually active. Denies any vaginal dryness or irritation. STI testing offered; she declined. Attempting to eat a healthy diet with calcium and vitamin D and stays active with exercise. Last pap smear; 2020. Last mammogram; 2023, at [facility] [place] no copies are available since 2022. Colonoscopy is UTD. Denies any family history of breast, ovarian or colon cancer. Smoker, not interested in quitting. REPLACED BY [facility] Medical History (Updated 01/06/25 @ 10:28 by Clementine Muhammad CNM) Nicotine dependence, cigarettes, uncomplicated Fibroid, uterine Mixed hyperlipidemia Dysplasia of cervix, low grade (LASHAWN 1) Smoker Depression Mild anemia History of LEEP (loop electrosurgical excision procedure) of cervix complicating Surgical History (Updated 01/06/25 @ 10:17 by MP [place]) History of loop electrical excision procedure (LEEP) History of colonoscopy (~07/12/21) History of cervical biopsy (~10/11/97) History of breast lump/mass excision (~12/30/08) Status post hysteroscopic ablation of endometrium (~12/18/17) Family History Mother Breast cancer, Onset Age: 68 Parkinson disease Father Diabetes Hypertension Hyperlipidemia CAD (coronary artery disease) Maternal Grandfather Colon cancer Sister Hyperlipidemia Hypothyroidism Social History Housing: House Alcohol intake: current Alcohol intake frequency: a few times a week Patient Tobacco Use Status: Current everyday Tobacco user Tobacco use type: Cigarette Cigarette Packs Per Day: 1 Cigarettes Per Day: 20.0 Years Smoked: 37 (onset 13yo) e-Cigarette/Vaping Use: Never Used Second Hand Smoke Exposure: No Substance Use Type: Marijuana service: No Current occupational status: employed 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 Sexual orientation: Straight/Heterosexual Gender identity: Female Cognitive needs: No Hearing needs: No Vision needs: No Female Reproductive History Menstrual Age of Menarche: 12 Menopause type: natural Total pregnancies: 0 Date of last pap smear: 07/24/21 (neg pap and hpv) History of abnormal pap smear: Yes Date of Mammogram: 06/27/23 Review of Systems Const All systems reviewed & are unremarkable except as noted in HPI and below Reports as per HPI Eyes Reports no additional complaints ENT Reports no additional complaints Card Reports no additional complaints Resp Reports no additional complaints GI Reports as per HPI and Reports no additional complaints Reports as per HPI Musc Reports no additional complaints Skin/Breast Reports as per HPI Neuro Reports no additional complaints Psych Reports no additional complaints Endo Reports no additional complaints Pete/Lymph Reports no additional complaints Aller/Immun Reports no additional complaints Physical Exam Vital Signs: Last Vital Signs BP 114/70 01/06/25 10:10 BMI result Body Mass Index 18.5 Const General: cooperative, healthy appearing, no acute distress, well developed and alert Orientation/consciousness: patient oriented x3 HEENT Head: Yes normal to inspection Eyes General: appearance normal, both eyes and all related structures Neck Neck: Yes normal visual inspection Thyroid: Thyroid normal Chest Chest palpation & inspection: normal inspection of the chest and other (no puckering, dimpling, peau de orange, retraction, discharge, masses) Breast/axilla inspection: normal inspection of the breasts Breast/axilla palpation: normal palpation of the breasts Resp Effort & Inspection: normal respiratory effort GI Inspection: Yes normal to inspection Palpation (GI): Soft to palpation Rectal Exam - Female: deferred General: Yes bladder normal to palpation External Female Exam: normal external appearance and normal appearance of the urethra Speculum Exam - Vagina: normal appearance of the vagina, normal palpation and normal vaginal discharge Speculum Exam - Cervix: normal appearance of the cervix and normal palpation Bimanual exam- vagina & uterus: normal bimanual exam, normal palpation, uterine size normal, bladder normal to palpation, normal palpation and non-tender Bimanual Exam- Adnexa, other: no masses Skin General skin exam: no rashes or lesions noted Rashes: no rashes Neuro General: patient oriented x3 Cognition (Neuro): normal cognition Extrem General: Yes normal to inspection Psych Attitude: cooperative Thought process: Normal thought process present Results Reviewed Results Reviewed: [address] [address] Ultrasound Report Signed Patient: Sally Cadena MR#: [id number] : 1970 Acct:[id number] Age/Sex: 53 / F ADM Date: 08/09/24 Loc: .US Attending Dr: Richmond Sanchez MD Ordering Physician: Richmond Sanchez MD Date of Service: 08/09/24 Procedure(s): US pelvic and transvaginal Accession Number(s): [id number] cc: Richmond Sanchez MD; Clementine Muhammad CNM~ EXAMINATION:US PELVIS TRANSABDOMINAL AND TRANSVAGINAL CLINICAL INFORMATION: N94.9 - Unspecified condition associated with female genital organs and ... COMPARISON: September 2023 LMP: Postmenopausal FINDINGS: UTERUS: The uterus is anteverted. Size: 6.1 x 3.5 x 4.9 cm. Uterine mass: Multiple uterine masses likely fibroids measuring up to 2.3 cm and 1.8 cm not significantly changed from prior exam allowing for interobserver variability. Cervix: Grossly unremarkable. Endometrium: No ultrasound evidence of endometrial lesion. endometrial thickness measures 0.3 cm ADNEXA: Normal Right ovary: Normal in size. Left ovary: Normal in size. Doppler exam: Normal Doppler flow identified in both ovaries. FREE FLUID: Trace amount of free fluid. OTHER FINDINGS: None US/US pelvic and transvaginal IMPRESSION: 1. Redemonstration of multiple uterine masses likely fibroids, not significantly changed allowing for interobserver variability. 2. Exam otherwise normal. Electronically signed by: Casimiro Varela MD 09/25/2024 03:36 PM [facility] Dictated By: Casimiro Varela MD Signed By: <Electronically signed by Casimiro Varela MD in OV> 09/25/24 1536 DD/ 1014 TD/TT: 08/09/24 1040 Plant Tour Guide: ILEANA Assessment & Plan Assessment & Plan (1) Encounter for well woman exam with routine gynecological exam: Code(s): Z01.419 - Encounter for gynecological examination (general) (routine) without ab normal findings Category: Medical (2) Fibroid: Code(s): D21.9 - Benign neoplasm of connective and other soft tissue, unspecified Plan: Discussed: Ultrasound findings-IMPRESSION: 1. Redemonstration of multiple uterine masses likely fibroids, not significantly changed allowing for interobserver variability. 2. Exam otherwise normal. Counseled re: Leiomyoma: common pelvic neoplasm. Differential diagnosis-may include but not limited to- leiomyosarcoma which is a rare uterine sarcoma 3- 7/100,000, difficult to distinguish from fibroids on ultrasound from uterine sarcoma's. Unlikely any single test will have a highly positive predictive value. Hysterectomy is not recommended for sole purpose of excluding malignant neoplasm. Consult for surgical exploration, medical treatment, other treatments, verses expectant management, pros and cons, risks and benefits. Expectant management follow up for stability. Patient prefers to proceed with expectant management. Report any PMB, pelvic pressure, bloating, or pain. Referral to MD if indicated for level of care if indicated. Total time I personally spent on visit and management today: ?15 minutes. Time spent included review of pertinent office notes in the electronic health record; review of laboratory and imaging results; review of personal family medical history; performing physical exam; discussing diagnosis and plan of care with the patient; documenting the encounter in the EMR. Plan Discussed: Current recommendations for pap smears per ASCCP guidelines. Pap obtained. Breast awareness, periodic self breast exams and yearly mammogram. Maintain a healthy lifestyle, well balanced diet including Calcium 1,200 mg and Vitamin D 600 IU daily, and routine exercise. Contact the office with any postmenopausal bleeding. Patient verbalizes understanding and agrees to the plan of care. She was given opportunity to ask questions and all questions were answered to the best of my ability. RTO in 1 year for annual special education assistant exam. This note is constructed using voice recognition software. While every effort has been made to ensure accuracy, traffic operations engineer errors may have been included. Orders: Orders HPV High risk Today Z01.419 - Encounter for gynecological examination (general) (routine) without abnormal findings Pap Smear Today Z01.419 - Encounter for gynecological examination (general) (routine) without abnormal findings Coding Level of Care Code Est Pt Level 2 (65939) Est Pt Prev Care 40-64y(96031) Diagnoses Encounter for well woman exam with routine gynecological exam Z01.419 Fibroid D21.9
[2025-01-06 10:10] VITALS: BP 114/70; BMI 18.5
--- OUTSIDE RECORDS SUMMARY | 2025-01-06 11:49 | XMS_ITS | Data Portability ---
Author Organization [place] - Maicol Monroe [facility], [facility] Address [address] [place] [address] Care Team Providers Care Head Chef Name Role Phone ALE KOEHLER Primary Care Provider [phone] Assessment Encounter Date Assessment Date Assessment LastModified by Organization Details LastModified Time 07/15/2024 07/15/2024 53-year-old fema le with ongoing back and radiating right leg pain numbness and weakness consistent with neuro claudication. Stenosis and spondylolisthesis confirmed at the L4-5 level. We discussed the possibility of a transforaminal interbody fusion but she would like to explore nonoperative care options including massage therapy and chiropractic. She will get back to us if she decides to pursue more aggressive care. Natural history reviewed and questions answered. Follow-up to be arranged. Lumbar spine MRI. Imaging independently reviewed in the office today with findings discussed and all questions answered. [email or web address] Not available 07/15/2024 20:21:55 Plan of Treatment Reminders Order Date Submit Date Provider Last Modified By Organization Details Last Modified Time Details Appointments None recorded. Lab None recorded. Referral None recorded. Procedures None recorded. Surgeries None recorded. Imaging XR, hand, 3 or more view - recheck pt 3 views bilateral hand rm 110 2024 025 [email or web address] [facility], [address], [place], [address], 5 10:59:35 XR, knee, 4 or more view - room 210 lt knee 4v cw 2023 024 [facility], [address], [place], [address], 09:31:33 Medication Orders meloxicam 15 mg tablet 2023 024 [email or web address] [id number], [address] [place], [address], 16:02:26 Patient TargetsNo targets recorded. Patient InstructionsNo instructions recorded. Reason for Referral None Reported. Results Created Date Observation Date Name Description Value Unit Range Abnormal Flag Note LastModifiedBy Organization Detail LastModifiedTime 07/05/2007/05/2024 XR, knee, 4 or more view [email or web address]:/ [email or web address] ?Encry pted=s hAaTro YD8dLq bEUv6g %2BXZw aYqtaq 0bqfl% 2Fg9IQ a4ajBk vP9nXo QUaueC m3YtLR FvZlgJ JJ8mAn HZtai3 3f6952 AC0Kqa 36BV6C mKiQtr MwF INTERFACE [facility] [address] [facility] [address], [address], 07/05/2024 11:59:50 07/05/20 24 07/05/2024 XR, knee, 4 or more view [email or web address]:/ [email or web address] ?Encry pted=s hAaTro YD8dLq bEUv6g %2BXZw aYqtaq 0bqfl% 2Fg9IQ a4ajBk vP9nXo QUaueC m3YtLR FvZl J8mAn ta 9h2663 AC0Kqa 36BV6C mKiQtr MwF INTERFACE [facility] [address], [place], [address], 07/05/2024 11:59:52 11/30/19 25 11/29/2024 XR, hand, 3 or more view [email or web address] ?Encry pted=s hAaTro YD8dLq bEUv6g %2BXZw aYqtaq 0bqfl% 2Fg9IQ a4ajBk vP9nXo QUaueC m3YtLR FvZlgJ JJ8mAn HZtai3 9j2633 AC0Kqb XuBUaO mKiQtr MwF INTERFACE [facility] [address], [place], [address], 11/29/2024 10:43:50 11/30/19 25 11/29/2024 XR, hand, 3 or more view [email or web address]:/ [email or web address] ?Encry pted=s hAaTro YD8dLq bEUv6g %2BXZw aYqtaq 0bqfl% 2Fg9IQ a4ajBk vP9nXo QUaueC m3YtLR FvZlgJ JJ8mAn HZtai3 0z0364 AC0Kqb XuBUaO mKiQtr MwF INTERFACE [facility] [address], [place], [address], 11/29/2024 10:43:52 Result Notes None recorded. Problems Name Problem SNOMED Code Status Onset Date Resolution Date Notes Provider Name and Address Organization Details Recorded Time Pain of left knee joint 0220014448062 07 Active 2023 aurora mague [facility] 4 11:51:58 Osteoarthri tis of left knee joint 2186893685293 09 Active 2023 aurora mague [facility] 4 12:27:26 Problem Notes None recorded. Procedures Surgical History Date Name Laterality Status Provider Name and Address Organization Details Recorded Time 5 Small Joint Kenalog Injection, L/R completed Amish Mondragon PA-C [address] [facility], [place], [address], [facility] 11/29/2024 11:11:20 5 JZMulti Trigger Finger Injection completed Amish Mondragon PA-C [address], [place], [address], [facility] 11/29/2024 11:11:03 Imaging Results Imaging Date Name Status LastModified by [facility] Details LastModified Time 07/05/2024 XR, knee, 4 or more view completed INTERFACE [facility] [address], [place], [address], 07/05/2024 11:59:50 07/05/2024 XR, knee, 4 or more view completed INTERFACE [facility] [address], [place], [address], 07/05/2024 11:59:52 11/29/2024 XR, hand, 3 or more view completed INTERFACE [facility] [address], [place], [address], 11/29/2024 10:43:50 11/29/2024 XR, hand, 3 or more view completed INTERFACE [facility] [address], [place], [address], 11/29/2024 10:43:52 Procedure Notes None recorded. Medical Equipment None Reported. Allergies No known drug allergies Medications Name Sig Start Date Stop Date Status Note LastModified by Organization Details LastModified Time acetaminoph en 325 mg tablet TAKE 2 TABLETS BY MOUTH 4 TIMES A DAY FOR 15 DAYS NEEDED FOR FEVER active Not Available Not Available No t Available azithromyci n 250 mg tablet TAKE 2 TABLETS BY MOUTH TODAY, THEN TAKE 1 TABLET DAILY FOR 4 DAYS DIRECTED active Not Available Not Available No t Available tizanidine 4 mg tablet TAKE 1 TABLET BY MOUTH THREE TIMES A DAY active Not Available Not Available No t Available meloxicam 15 mg tablet TAKE 1 TABLET EVERY DAY BY ORAL ROUTE WITH MEAL(S). 2023 active Not Available Not Available Not Avai lable ondansetron HCl 4 mg tablet TAKE 1 TABLET BY MOUTH EVERY 8 HOURS FOR 5 DAYS, NEEDED FOR NAUSEA & VOMITING 07/05 completed Not Available Not Available Not Available tramadol 50 mg tablet TAKE 1 TABLET BY MOUTH THREE TIMES A DAY NEEDED FOR SEVERE PAIN FOR 15 DAYS 07/05 completed Not Available Not Available Not Available pantoprazol e 20 mg tablet,yudi yed release TAKE 2 TABLETS BY MOUTH EVERY DAY active Not Available Not Available No t Available tamsulosin 0.4 mg capsule TAKE 1 CAPSULE BY MOUTH EVERY DAY 07/05 completed Not Available Not Available Not Available dexamethaso ne 4 mg tablet PLEASE SEE ATTACHED FOR DETAILED DIRECTION S 07/05 completed Not Available Not Available Not Available lidocaine 5 % topical patch APPLY 1 PATCH DAILY TO MOST PAINFUL AREA (UP TO 12 HOURS ON THEN 12 HOURS OFF) active Not Available Not Available No t Available oxycodone 5 mg capsule TAKE 1 CAPSULE BY MOUTH EVERY 8 HOURS NEEDED FOR SEVERE PAIN ONLY active Not Available Not Available No t Available gabapentin 300 mg capsule TAKE 1 CAPSULE BY MOUTH THREE TIMES A DAY active Not Available Not Available No t Available norethindro ne acetate 5 mg tablet TAKE 1 TABLET BY MOUTH EVERY DAY -- (CONTINUO US DOSE) 07/05 completed Not Available Not Available Not Available ibuprofen 600 mg tablet TAKE 1 TABLET BY MOUTH 3 TIMES A DAY,X14 DAYS NEEDED FOR MODERATE PAIN active Not Available Not Available No t Available methylpredn isolone 4 mg tablets in a dose pack TAKE 6 TABLETS ON DAY 1 DIRECTED ON PACKAGE AND DECREASE BY 1 TAB EACH DAY FOR A TOTAL OF 6 DAYS 07/05 completed Not Available Not Available Not Available sertraline 50 mg tablet TAKE 1 TABLET BY MOUTH EVERY DAY active Not Available Not Available No t Available oxycodone 5 mg tablet TAKE 1 TABLET BY MOUTH TWICE A DAY NEEDED FOR PAIN FOR 5 DAYS 07/05 completed Not Available Not Available Not Available BinaxNOW COVID-19 Ag Self Test kit TEST DIRECTED TODAY 07/05 completed Not Available Not Available Not Available Vitals Date Recorded Body height Body mass index (BMI) Body weight Provider Name and Address Organization Details Last Updated DateTime 05/10/2024 172.72 cm 18.5 kg/m2 03411.27 g JOSE ELIAS HEBERT [facility] 05/10/2024 14:34:33 Date Recorded Body height Body mass index (BMI) Body weight Provider Name and Address Organization Details Last Updated DateTime 07/05/2024 172.72 cm 18.5 kg/m2 41260.27 g linda bowser [facility] 07/05/2024 11:51:34 Date Recorded Body height Body mass index (BMI) Body weight Provider Name and Address Organization Details Last Updated DateTime 07/15/2024 172.72 cm 18.5 kg/m2 16489.27 g SHERLEY NARANJO [facility] 07/15/2024 17:33:14 Date Recorded Body height Body mass index (BMI) Body weight Provider Name and Address Organization Details Last Updated DateTime 11/29/2024 172.72 cm 18.5 kg/m2 33716.27 g Christine Griergo [facility] 11/29/2024 10:33:22 Social History None recorded. Functional Status None recorded. Mental Status None recorded. Family History Nothing Reported. Medical History No medical history recorded. Gynecological HistoryNo gynecological history recorded. Obstetrics History GPAL:G 0 P 0 0 0 0 Past Encounters Encounter ID Performer Location Encounter Start Date Encounter Closed Date Diagnosis/Indication Diagnosis SNOMED-CT Code Diagnosis ICD10 Code Diagnosis Note [id number] [facility] [address] [place] [address] 05/10/2024 14:25:47 06/14/2024 08:52:52 [id number] JOHN [facility] [address] [place] [address] 07/05/2024 11:26:38 07/29/2024 09:31:33 Pain of left knee joint 6972374635 27339 M25.562 Osteoarthr itis of left knee joint 6879723929 91571 M17.12 [id number] Collin Parekh MD [facility] [address] [place] [address] 07/15/2024 17:05:17 08/08/2024 13:37:02 Lumbar radiculopathy 895919858 M54.16 [id number] Amish Mondragon PA-C [facility] [address] [place] [address] 11/29/2024 10:09:54 12/13/2024 15:00:21 Pain of bilateral hands 0687077813 4532595 M79.641 M79.642 Health Concerns Section Related Observation LastModified by Organization Detai ls LastModified Time None Recorded Concern Status LastModified by Organization Details LastModified Time None Recorded Advance Directives Directive None Recorded Payers Encounter Date Sequence Insurance Name Policy Number Policy Alcal[place] Covered Member ID Alcala Member ID Guarantor Name 05/10/2024 1 [facility] [employer] (MEDICAID HMO) MARCUS Cadena [id number] Sally Cadena 07/05/2024 1 [facility] [employer] (MEDICAID HMO) MARCUS Cadena [id number] Sally Cadena 07/15/2024 1 [facility] [employer] (MEDICAID HMO) MARCUS Cadena [id number] Sally Cadena 11/29/2024 1 [facility] (MEDICAID HMO) MARCUS Cadena [id number] Sally Cadena Notes Date Note Type Note Provider Name and Address Organization Details Recorded Time 05/10/2024 text/html I am seeing the patient today under the supervision of dr wilcox who was available but who did not see the patient. DX: Flexor tenosynovitis Left Middle and ring fingers HPI: 53-year-old female here for orthopedic consultation. The patient reports pain to the left Middle and ring finger forThe past few months. 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 She believes that this worsens her trigger fingers.. The patient wakes up in the morning with his PIP joint in a flexed posture, and has to manually extend the finger. The patient has pain with grasp, no numbness or tingling.She is currently on oral steroids. Past family, medical, social history and review of systems has been reviewed, updated and signed by me and is located in the patient? s chart. Examination: Alert and oriented ? ? 3 . No acute distress. Nonantalgic gait left finger reveals no soft tissue swelling, erythema, or ecchymosis. Tender nodule over the A1 tito region, no audible click or snap noted. Has decent range of motion. Sensation is intact, 1+ capillary refill, 2+ radial pulse. Examination of the right hand shows no warmth, erythema, swelling, or effusion. Full ROM, 5/5 strength all muscle groups and no evidence of instability. X-rays ordered, obtained and reviewed at [facility] none Impression/Plan:Findin gs and situation discussed with patient. Overall patient is doing well. At this point, we will hold off on cortisone injection. if her symptoms exacerbate, then she will return for possible corticosteroid injection. She is provided with a handout. Amish Mondragon PA-C [address] [facility] [address], [place], [address], [facility] 05/10/2024 14:55:32 07/05/2024 text/html I am seeing the patient today under the supervision of Dr. Devries who was available but who did not see the patient. HPI: Sally presents to the office today for an evaluation of her left knee. She had a fall 2-1/2 years ago resulting in left knee discomfort. She describes her pain as being over the anterior aspect of the knee. Pain is present with kneeling, squatting, and getting up from a seated position. She has no difficulty walking on level ground. Denies mechanical symptoms of catching, locking, and giving way. She takes shmr-fpa-usnbdgk medication for her pain. She is here today for treatment recommendations. PMH/PSH/MEDS/ALL/FMH/S OC HX/ROS are reviewed in detail per my medical intake sheet. General Exam: Vital signs are as noted below Mental status: Alert and lucid. Normal insight, affect and grooming. TANK BUILDER: Gross motor coordination is intact. No spasticity or clonus noted. EXAMINATION: The patient is well appearing and in no apparent distress. Alert and oriented x3. Gait is symmetric. {{Right Left*}} knee reveals no deformity upon inspection. No joint effusion, edema, erythema, ecchymosis, or lesions. Neurovascularly intact. No localized tenderness. ROM is full and pain free. Crepitus noted. Stability intact with anterior, posterior, and varus/valgus stress at both 0 and 30 degrees of flexion. Positive patella grind. 5/5 strength. Calf/leg compartments soft and compressible. {{Right Left*}} hip reveals no obvious deformity upon inspection. No edema, erythema, ecchymosis, or lesions. Neurovascularly intact. No localized tenderness. ROM full in all planes. Negative impingement sign, Primo's, Stinchfield test, and straight leg raise. No instability. 5/5 strength. Calf/leg compartments soft and compressible. X-rays ordered, obtained and reviewed at [facility] today include an AP standing, King, and merchant view of bilateral knees. Lateral view of left knee. Images reveal severe end-stage osteoarthritis of the patellofemoral compartment. There are mild degenerative changes in the tibiofemoral compartment. No acute fracture or lesion. IMPRESSION: Left knee end-stage patellofemoral osteoarthritis PLAN: The natural progression of osteoarthritis has been discussed with patient to conservative versus surgical treatment options. A prescription for meloxicam was sent to her pharmacy. Side effects have been reviewed. She will hold oaym-vgw-momvsox NSAIDs while taking this medication. We also discussed cortisone and viscosupplementation. Activity modification was discussed. The patient is unfortunately dealing with significant low back pain and right lower extremity radiculopathy. She has received an injection at [facility] without much benefit. She prefers to focus on her lower back issue prior to proceeding with additional treatment for her knee. If her knee pain increases she will call the office in order to schedule an injection. All questions answered. Erma Rosales PA-C [address], [place], [address], [facility] 07/05/2024 16:40:03 07/15/2024 text/html HPI: 53-year-old female presents with low back and radiating right leg pain numbness weakness present over the course the last 6 months but worse over the last 3 months. 7 out of a possible 10. Right leg pain radiates to her foot. Worse with sitting. Disrupts her balance. No bowel or bladder complaints and no left leg symptoms described. PFMSH and ROS has been reviewed, updated and is located in the patient's chart. TREATMENT: Physical therapy ineffective. She has had some injection management with limited benefit MEDICATIONS: Meloxicam and Tylenol muscle relaxants WORK STATUS: Full duty [employer] IMAGING: MRI lumbar spine reviewed. Study notable for spinal stenosis spondylolisthesis isolated to the L4-5 level. Otherwise some moderate spondylosis L5-S1 only. X-RAY REPORT: X-rays ordered, obtained and reviewed at [facility]. Collin Parekh MD [address], [place], [address], [facility] 07/15/2024 20:22:13 11/29/2024 text/html I am seeing the patient today under the supervision of dr wilcox who was available but who did not see the patient. DX: Flexor tenosynovitis Left ring finger.Flexor tenosynovitis left thumbDIP joint osteoarthritis left index finger HPI: 53-year-old female here for reevaluation. 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 She is complaining of left thumb and ring finger triggering. She has arthritis of her DIP joint of the index finger causing her pain when she holds the scissors in colon. Past family, medical, social history and review of systems has been reviewed, updated and signed by me and is located in the patient? s chart. Examination: Alert and oriented ? ? 3 . No acute distress. Nonantalgic gait left thumb and ring finger reveals no soft tissue swelling, erythema, or ecchymosis. Tender nodule over the A1 tito region, no audible click or snap noted. Has decent range of motion. Sensation is intact, 1+ capillary refill, 2+ radial pulse. Prominent DIP joint index finger that is tender to palpation. Examination of the right hand shows no warmth, erythema, swelling, or effusion. Full ROM, 5/5 strength all muscle groups and no evidence of instability. X-rays ordered, obtained and reviewed at [facility] 3 views bilateral hands reveals degenerative changes of the phalangeal joints worse at the DIP joint of the index finger. Impression/Plan:Findin gs and situation discussed with patient. Patient would like to proceed with corticosteroid injection. Under aseptic technique 40 mg of Kenalog-40 was injected into the left thumb patient and the ring finger A1 tito region. Under aseptic technique technique 40 mg injected into the DIP joint left index finger. She tolerated seizure well. Amish Mondragon PA-C [address], [place], [address], [facility] 11/29/2024 11:11:38 OBGyn Episode No OBEpisode recorded.
== END 2025-01-06 10:34 | disposition home or self-care (01) ==
LOC: HO.HWS 10:08
PROVIDERS: PCP Internal Medicine; Visit Provider Advanced Practice Midwife
DX: Z01.419 Encounter for gynecological examination (general) (routine) without abnormal findings (principal); D25.9 Leiomyoma of uterus, unspecified
CPT/HCPCS: 99213; 99396; 99459

== ENCOUNTER 2025-01-06 10:08 | Outpatient (REF) | payer OTHER, SELFPAY ==
[2025-01-11 14:16] LABS: HPV Genotype 16 Negative (Negative); HPV Genotype 18 Negative (Negative); HPV High Risk Negative (Negative)
== END 2025-01-06 10:09 | disposition home or self-care (01) ==
LOC: HO.LNP 10:08
PROVIDERS: PCP Internal Medicine; Visit Provider Advanced Practice Midwife
DX: Z01.419 Encounter for gynecological examination (general) (routine) without abnormal findings (principal); D21.9 Benign neoplasm of connective and other soft tissue, unspecified
CPT/HCPCS: 87626; 88175; 99212; 99396; 99459

== ENCOUNTER 2025-07-08 09:56 | Outpatient (AMB) | payer OTHER, SELFPAY ==
[2025-07-08 09:58] VITALS: BP 114/78; PULSE 72; O2SAT 95; BMI 18.4
--- NOTE | 2025-07-08 09:58 | A.OFFPC_ITS ---
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 Required: No Accompanied by: Self / Same As Patient Allergies oxycodone (From PERCOCET) Adverse Reaction (Mild, Verified 07/08/25 10:26) NAUSEA/VOMITING Medication List - Last Reconciled 07/08/25 by Richmond Sanchez MD aspirin 81 mg PO DAILY ferrous sulfate, dried ER (Iron (dried)) 160 mg PO DAILY multivitamin 1 tab PO DAILY omega-3 fatty acids (Fish Oil Concentrate) 1,000 mg PO DAILY sertraline 50 mg PO DAILY 90 days Tobacco use date assessed: 07/08/25 Dental Screening Dental Screen Date: 07/08/25 Did you have a dental visit in the last 12 months?: Yes Did you have a dental problem in the last 6 months where you did not have access to dental care?: No Was dental information given to patient?: Patient has dentist HPI discuss pain med options HPI Details Patient comes in today for further evaluation of her increasing low back pain recently States that over the past year, she has been experiencing worsening pain over her lower back, with frequent radiation of pain down her right leg, which is significantly limiting her ability to work as 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 and that her being on her feet all day and bending frequently due to her line of work is causing her symptoms to flare up more often, especially over the past 3 weeks States that she has tried treating her low back pain with OTC anti- inflammatories with no relief She has also tried Lidocaine patches, Gabapentin and even some Oxycodone recently with limited relief She has a history of L4-L5 disc protrusion in the past, causing nerve pain and similar symptoms in the past She was seen by neurosurgery for the same symptoms last year and was recommended to undergo surgery but her symptoms eventually resolved on their own so she did not proceed with surgical intervention She denies any headaches or dizziness Denies any chest pains, no SOB No nausea/vomiting, no abdominal pain No change in bowel habits noted PFSH Medical History Nicotine dependence, cigarettes, uncomplicated Fibroid, uterine Mixed hyperlipidemia Dysplasia of cervix, low grade (LASHAWN 1) Depression Mild anemia History of LEEP (loop electrosurgical excision procedure) of cervix complicating Surgical History History of loop electrical excision procedure (LEEP) History of colonoscopy (~07/12/21) History of cervical biopsy (~10/11/97) History of breast lump/mass excision (~12/30/08) Status post hysteroscopic ablation of endometrium (~12/18/17) Family History Mother Breast cancer, Onset Age: 68 Parkinson disease Father Diabetes Hypertension Hyperlipidemia CAD (coronary artery disease) Maternal Grandfather Colon cancer Sister Hyperlipidemia Hypothyroidism Social History Housing: House Alcohol intake: current Alcohol intake frequency: a few times a week Patient Tobacco Use Status: Current everyday Tobacco user Tobacco use type: Cigarette Cigarette Packs Per Day: 1 Cigarettes Per Day: 20.0 Years Smoked: 37 (onset 13yo) e-Cigarette/Vaping Use: Never Used Second Hand Smoke Exposure: No Substance Use Type: Marijuana service: No Current occupational status: employed 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 1. Little interest or pleasure in doing things: not at all 2. Feeling down, depressed, or hopeless: not at all 3. Trouble falling or staying asleep, or sleeping too much: not at all 4. Feeling tired or having little energy: not at all 5. Poor appetite or overeating: not at all 6. Feeling bad about yourself - or that you are a failure or have let yourself or your family down: not at all 7. Trouble concentrating on things, such as reading the newspaper or watching television: not at all 8. Moving or speaking so slowly that other people could have noticed. Or the opposite - being so fidgety or restless that you have been moving around a lot more than usual: not at all 9. Thoughts that you would be better off or of hurting yourself in some way: not at all Total score: 0 Depression Screening Interpretation: Negative Depression Screening Done: Yes 78055 - PHQ-9 Billing: Yes Source: Developed by Drs. Collin Camara, Rosalie Olivo, Ayaz Cheek and colleagues, with an educational renetta from [employer]. Thrive Questionnaire Date Thrive assessed: 07/08/25 I am a: Patient What is your living situation today?: I have a steady place to live Within the past 12 months, did the food you bought not last and you didn't have the money to get more?: Never true Within the past 12 months, did you worry whether your food would run out before you got money to buy more?: Never true Do you have trouble paying for medicines?: No Do you have trouble getting transportation to medical appointments?: No Do you have trouble paying your heating and electricity bill?: No Do you have trouble taking care of your child, family member or friend?: No Do you have trouble with day-to-day activities such as bathing, preparing meals, shopping, managing finances, etc.?: No Are you currently unemployed and looking for a job?: No Are you interested in more education?: No Please select the resources that you would like help with: None Currently or been in a relationship where the following occur: No concerns reported THRIVE Score: 0 AUDIT C Alcohol Use Questionnaire (AUDIT-C) 1. How often do you have a drink containing alcohol?: 2-3 times a week 2. How many drinks containing alcohol do you have on a typical day when you are drinking?: 3 or 4 3. How often do you have six or more drinks on one occasion?: Less than monthly Total Score: 5 Score Reviewed/Action Taken: Yes ANNALISA-7 AMB Questionnaire ANNALISA-7 Date ANNALISA - 7 assessed: 06/28/24 Source: Developed by Drs. Collin Camara, Ayaz Yañez and colleagues, with an educational renetta from [employer]. Review of Systems Const Denies chills, Denies fatigue, Denies fever(s) and Denies headache(s) ENT Denies dysphagia, Denies dizziness, Denies headache(s), Denies neck pain and Denies sore throat Card Denies chest pain, Denies palpitations and Denies dyspnea Resp Denies chest congestion, Denies cough and Denies dyspnea GI Denies abdominal pain, Denies constipation, Denies dysphagia, Denies diarrhea, Denies nausea and Denies vomiting Denies difficulty voiding, Denies nocturia and Denies dysuria Musc Reports back pain (worsening over the past few weeks), Denies neck pain and Reports radiating pain into limb (into the right leg frequently lately) Skin/Breast Denies rash Neuro Denies dizziness and Denies headache(s) Endo Denies fatigue and Denies palpitations Physical exam (Primary Care) Vital Signs: Last Vital Signs Pulse 72 07/08/25 09:58 BP 114/78 07/08/25 09:58 Pulse Ox 95 07/08/25 09:58 Oxygen Delivery Method Room Air 07/08/25 09:58 BMI result Body Mass Index 18.4 Tobacco/Smoking Status: Tobacco use Status Tobacco use date assessed 07/08/25 07/08/25 10:03 Patient Tobacco Use Status Current everyday Tobacco 07/08/25 10:03 Tobacco use type Cigarette 07/08/25 10:03 e-Cigarette/Vaping Use Never Used 07/08/25 10:03 PHQ-9: PHQ-9 Score PHQ-9: Total score 0 07/08/25 10:30 Depression Screening Interpretation: Negative Thrive Assessment: Date of Thrive Assessment Date Thrive assessed 06/27/25 07/08/25 10:03 Currently or been in a relationship where the following occur: No concerns reported Const General: no acute distress and alert Neck Neck: Yes supple and No lymphadenopathy Thyroid: Thyroid normal Resp Auscultation: clear to auscultation bilaterally, no rales and no wheezes Cardio Rate: regular rate Rhythm: regular rhythm Heart sounds: no murmurs GI Palpation (GI): Soft to palpation and nontender Auscultation: normal bowel sounds General: Yes no CVA tenderness Back/Spine/Pelvis Back: no CVA tenderness Thoracic/Lumbar Spine: lumbar spinal tenderness and straight leg raise positive right Skin Rashes: no rashes Extrem General: Yes no clubbing, cyanosis or edema Coding Level of Care Code Est Pt Level 4 (29672) Diagnoses Protrusion of intervertebral disc of lumbosacral region M51.27 Right lumbosacral radiculopathy M54.17 Additional Codes PHQ-9 - 41143 - PHQ-9 Billing: Yes ([id number]) Assessment & Plan Assessment & Plan (1) Protrusion of intervertebral disc of lumbosacral region: Code(s): M51.27 - Other intervertebral disc displacement, lumbosacral region Category: Medical (2) Right lumbosacral radiculopathy: Code(s): M54.17 - Radiculopathy, lumbosacral region Category: Medical Plan Will refer patient for MRI of the lumbar spine for further evaluation Will start her back on Gabapentin 100 mg TID, Lidocaine 5% patch QD PRN and Oxycodone 5 mg BID-TID PRN - she is advised to take Oxycodone as a last resort Will also start her additionally on Tizanidine 4 mg TID PRN To return as scheduled in September 2025 for her annual physical examination Orders: Orders MR lumbar spine wo con 07/08/25 M51.27 - Other intervertebral disc displacement, lumbosacral region, M54.17 - Radiculopathy, lumbosacral region Medications: New gabapentin 100 mg PO TID 90 caps 1RF 30 days lidocaine 5% leave on most painful area for up to 12 hrs 1 patch topical DAILY 30 ea 1RF 30 days oxycodone Take as needed only for severe pain 5 mg PO BID-TID PRN 20 tabs 0RF severe pain 15 days Changed From tizanidine use sparingly 4 mg PO TID PRN 15 tabs 0RF muscle spasticity To tizanidine (Zanaflex) use sparingly 4 mg PO TID PRN 90 tabs 1RF muscle spasticity 30 days
== END 2025-07-08 10:54 | disposition home or self-care (01) ==
LOC: HO.HMCH 09:56
PROVIDERS: Visit Provider Internal Medicine
DX: M51.27 Other intervertebral disc displacement, lumbosacral region (principal); M54.17 Radiculopathy, lumbosacral region

== ENCOUNTER → 2025-07-08 09:56 | Outpatient (BNVA) | payer OTHER, SELFPAY | PROVIDERS: Visit Provider Internal Medicine | DX: M51.27 Other intervertebral disc displacement, lumbosacral region (principal); M54.17 Radiculopathy, lumbosacral region; Z13.31 Encounter for screening for depression | CPT/HCPCS: 96127; 99212 ==

== ENCOUNTER 2025-07-15 11:53 | Outpatient (REF) | payer OTHER, SELFPAY ==
--- NOTE | ~2025-07-15 | MM_ITS ---
EXAMINATION: MM SCREENING DIGITAL BREAST TOMOSYNTHESIS, BILATERAL CLINICAL INFORMATION: Screening. Asymptomatic. COMPARISON: Mammography: Comparison is made with available priors TECHNIQUE: Digital breast mammography with tomosynthesis is performed in both the craniocaudal and mediolateral oblique views along with computer-aided detection (CAD). FINDINGS: The breasts are extremely dense, which lowers the sensitivity of mammography. Left postsurgical changes. There are no significant masses, abnormal calcifications, or other abnormalities. MM/MM tomosynthesis screening BI IMPRESSION: No mammographic evidence of malignancy. ASSESSMENT: BI-RADS Category 2: Benign RECOMMENDATION: Routine annual mammography screening. 1 year F/U This examination should not preclude the clinical evaluation of a suspicious palpable abnormality. This patient's information was entered into a reminder system with a target due date for their next mammogram. Electronically signed by: Clover Moreira DO 07/18/2025 05:28 PM EDT
--- OUTSIDE RECORDS SUMMARY | 2025-07-15 14:42 | XMS_ITS | Encounter Summary ---
Author Organization [facility] Address [address] [place] [address] Phone Care Team Providers Care Nuclear Reactor Technician Name Role Phone Richmond Sanchez MD Primary Care Provider [phone] Encounter Details Date Type Department Care Team (Late st Contact Info) Description 2020 Ancillary Orders Virtual Department [address] [place] [address] Richmond Sanchez MD [address] [place] [address] [place] [address] Breast screening Social History Tobacco Use Types Packs/Day Years Used Date Smoking Tobacco: Never Assessed Comments No Sex and Gender Information Value Date Recorded Sex Assigned at Not on file Legal Sex Female 9:34 PM EDT Gender Identity Not on file Sexual Orientation Not on file documented as of this encounter Plan of Treatment Not on file documented as of this encounter Results * BI MAMMOGRAM SCREENING WITH TOMOSYNTHESIS WITH CAD (BILATERAL) (03/23/2021 11:53 AM EDT) Anatomical Region Laterality Modality Breast Left, Breast Right, Breast Bilateral Bila teral Mammography 03/23/2021 1:06 PM EDT Impressions 03/23/2021 1:07 PM EDT No mammographic change indicative of malignancy. Annual screening is recommended. BI-RADS CATEGORY: 2 - Benign finding. DENSITY: The breast tissue is extremely dense, which lowers the sensitivity of mammography. Narrative 03/23/2021 1:07 PM EDT Bilateral full-field digital screening mammography is obtained and read in conjunction with computer-aided detection. Tomosynthesis as well as 2-D C view imaging of both breasts in two planes also obtained. Comparison made to multiple prior, most recent March 17, 2020, and most remote August 05, 2014. No dominant mass, architectural distortion, worrisome asymmetry, or suspicious calcification is identified. No skin or nipple finding of concern is appreciated. Extensive punctate microcalcification again noted bilaterally without worrisome change. Procedure Note Maikel Welsh MD - 03/23/2021 Bilateral full-field digital screening mammography is obtained and read inconjunction with computer-aided detection. Tomosynthesis as well as 2-D Cview imaging of both breasts in two planes also obtained. Comparison madeto multiple prior, most recent March 17, 2020, and most remote July. No dominant mass, architectural distortion, worrisome asymmetry, orsuspicious calcification is identified. No skin or nipple finding ofconcern is appreciated. Extensive punctate microcalcification again notedbilaterally without worrisome change. IMPRESSION: No mammographic change indicative of malignancy. Annual screening isrecommended. BI-RADS CATEGORY: 2 - Benign finding. DENSITY: The breast tissue is extremely dense, which lowers thesensitivity of mammography. Richmond Sanchez MD IMG MG EXAMS Final Res ult documented in this encounter Visit Diagnoses Diagnosis Breast screening Breast screening, unspecified Breast screening Breast screening, unspecified documented in this encounter Care Teams Nuclear Reactor Technician Relationship Specialty Start Date End Date Richmond Sanchez MD [address] [place] [address] Dr [address] [place] [id number] PCP - General 07/15/17 documented as of this encounter Additional Source Comments The information contained in this document represents components of the legal health record. It is not the complete legal health record.[facility]
--- OUTSIDE RECORDS SUMMARY | 2025-07-15 14:42 | XMS_ITS | Clinical Summary ---
Author Organization [facility] Address [address] [address] Phone Care Team Providers Care Vp Design Name Role Phone Richmond Sanchez MD Primary Care Provider [phone] Family History Medical History Relation Comments Breast cancer Mother Relation Status Comments Mother Social History Tobacco Use Types Packs/Day Years Used Date Smoking Tobacco: Never Assessed Education Answer Date Recorded Are you interested in more education? Not on jarrod e 01/24/2023 Are you concerned about learning? Not on file 01/24/2023 No 01/24/2023 No 01/24/2023 Digital Access Answer Date Recorded No 02/24/2023 No 02/24/2023 Reliable internet access at home? Not on file 02/24/2023 Device with a working camera? Not on file Comments No Sex and Gender Information Value Date Recorded Sex Assigned at Not on file Legal Sex Female 9:34 PM EDT Gender Identity Not on file Sexual Orientation Not on file Plan of Treatment Not on file Medical Devices Not on file Insurance [facility] [place] [address] [place] [address] [place] [place] [address] [place] [address] [place] [address] [place] [address] [place] [address] [place] [address] [place] [address] [address] [facility] A[employer] Care Teams Vp Design Relationship Specialty Start Date End Date Richmond Sanchez MD [address] [place] [address] Dr [place] [id number] PCP - General 07/15/17 Additional Source Comments The information contained in this document represents components of the legal health record. It is not the complete legal health record.[facility]
--- OUTSIDE RECORDS SUMMARY | 2025-07-15 14:42 | XMS_ITS | Encounter Summary ---
Author Organization [facility] Address [address] [place] [address] Phone Care Team Providers Care Audio Visual Aide Name Role Phone Richmond Sanchez MD Primary Care Provider [phone] Encounter Details Date Type Department Care Team (Late st Contact Info) Description 04/02/2024 Procedure Pass [facility], [address] [address] Social History Tobacco Use Types Packs/Day Years [...] on file documented as of this encounter Visit Diagnoses Not on filedocumented in this encounter Care Teams Audio Visual Aide Relationship Specialty Start Date End Date Richmond Sanchez MD [address] [place] [address] [place] [address] PCP - General 07/15/17 documented as of this encounter Additional Source Comments The information contained in this document represents components of the legal health record. It is not the complete legal health record.[facility]
--- OUTSIDE RECORDS SUMMARY | 2025-07-15 14:42 | XMS_ITS | Encounter Summary ---
Author Organization [facility] Address [address] [facility] [address] [place] [address] Phone Care Team Providers Care Label Stamper Name Role Phone Richmond Sanchez MD Primary Care Provider [phone] Encounter Details Date Type Department Care Team (Late st Contact Info) Description 12/10/2019 Ancillary Orders Virtual Department [address] [place] [address] Richmond Sanchez MD [address] [place] [address] [place] [address] Breast screening Social History Tobacco Use Types [...] MAMMOGRAM SCREENING WITH TOMOSYNTHESIS WITH CAD (BILATERAL) (03/17/2020 11:39 AM EDT) Anatomical Region Laterality Modality Breast Left, Breast Right, Breast Bilateral Bila teral Mammography 03/17/2020 12:5 7 PM EDT Impressions 03/17/2020 12:59 PM EDT No mammographic change indicative of malignancy. Annual screening is recommended. BI-RADS CATEGORY: 2 - Benign finding. DENSITY: The breast tissue is heterogeneously dense, an appearance which lowers the sensitivity of mammography. POS -[id number] Narrative 03/17/2020 12:59 PM EDT Bilateral full-field digital screening mammography is obtained and read in conjunction with computer-aided detection. Tomosynthesis as well as 2-D C view imaging of both breasts in two planes also obtained. Comparison made to multiple prior, most recent March 12, 2019, and most remote February 11, 2014. No dominant mass, architectural distortion, worrisome asymmetry, or suspicious calcification is identified. No skin or nipple finding of concern is appreciated. Punctate calcifications bilaterally demonstrate no worrisome interval change. Procedure Note Estela Grubbs MD - 03/17/2020 Bilateral full-field digital screening mammography is obtained and read inconjunction with computer-aided detection. Tomosynthesis as well as 2-D Cview imaging of both breasts in two planes also obtained. Comparison madeto multiple prior, most recent March 12, 2019, and most remote January. No dominant mass, architectural distortion, worrisome asymmetry, orsuspicious calcification is identified. No skin or nipple finding ofconcern is appreciated. Punctate calcifications bilaterally demonstrateno worrisome interval change. IMPRESSION: No mammographic change indicative of malignancy. Annual screening isrecommended. BI-RADS CATEGORY: 2 - Benign finding. DENSITY: The breast tissue is heterogeneously dense, an appearance whichlowers the sensitivity of mammography. POS -[id number] Richmond Sanchez MD IMG MG EXAMS Final Res ult documented in this encounter Visit Diagnoses Diagnosis Breast screening Breast screening, unspecified Breast screening Breast screening, unspecified documented in this encounter Care Teams Label Stamper Relationship Specialty Start Date End Date Richmond Sanchez MD [address] [place] [address] [place] [address] PCP - General 07/15/17 documented as of this encounter Additional Source Comments The information contained in this document represents components of the legal health record. It is not the complete legal health record.[facility]
--- OUTSIDE RECORDS SUMMARY | 2025-07-15 14:42 | XMS_ITS | Encounter Summary ---
Author Organization [facility] Address [address] [place] [address] Phone Care Team Providers Care Lens Cleaner Name Role Phone Richmond Sanchez MD Primary Care Provider [phone] Encounter Details Date Type Department Care Team (Late st Contact Info) Description 01/03/2023 Procedure Pass [facility], [facility] [address] [place] [address] Social History Tobacco Use Types Packs/Day Years [...] on filedocumented in this encounter Care Teams Lens Cleaner Relationship Specialty Start Date End Date Richmond Sanchez MD [address] [place] [address] [place] [address] PCP - General 07/15/17 documented as of this encounter Additional Source Comments The information contained in this document represents components of the legal health record. It is not the complete legal health record.[facility]
--- OUTSIDE RECORDS SUMMARY | 2025-07-15 14:42 | XMS_ITS | Encounter Summary ---
Author Organization [facility] Address [address] [place] [address] Phone Care Team Providers Care In Flight Refueling Operator Name Role Phone Richmond Sanchez MD Primary Care Provider [phone] Encounter Details Date Type Department Care Team (Late st Contact Info) Description 2020 Procedure Pass [facility], [facility] [address] [place] [address] Social History Tobacco Use Types Packs/Day Years [...] on filedocumented in this encounter Care Teams In Flight Refueling Operator Relationship Specialty Start Date End Date Richmond Sanchez MD [address] [place] [address] [place] [address] PCP - General 07/15/17 documented as of this encounter Additional Source Comments The information contained in this document represents components of the legal health record. It is not the complete legal health record.[facility]
--- OUTSIDE RECORDS SUMMARY | 2025-07-15 14:42 | XMS_ITS | Encounter Summary ---
Author Organization [facility] Address [address] [place] [address] Phone Care Team Providers Care Pile Driving Supervisor Name Role Phone Richmond Sanchez MD Primary Care Provider [phone] [phone] Encounter Details Date Type Department Care Team (Late st Contact Info) Description 12/15/2017 Ancillary Orders Virtual Department [address] [place] [address] Richmond Sanchez MD [address] [place] [address] [place] [address] Breast screening Social History Tobacco Use Types Packs/Day Years Used Date Smoking Tobacco: Never Assessed Comments Unknown Sex and Gender Information Value Date Recorded Sex Assigned at Not on file Legal Sex Female 9:34 PM EDT Gender Identity Not on file Sexual Orientation Not on file documented as of this encounter Plan of Treatment Not on file documented as of this encounter Results * BI MAMMOGRAM SCREENING WITH TOMOSYNTHESIS WITH CAD (BILATERAL) (03/06/2018 12:08 PM EDT) Anatomical Region Laterality Modality Breast Left, Breast Right, Breast Bilateral Bila teral Mammography 03/06/2018 6:38 PM EDT Impressions 03/06/2018 6:45 PM EDT No mammographic change indicative of malignancy. Routine screening is recommended. BI-RADS CATEGORY: 2 - Benign finding. DENSITY: The breast tissue is extremely dense, an appearance which could obscure a lesion on mammography. POS - [id number] Narrative 03/06/2018 6:45 PM EDT FINDINGS: Bilateral full-field digital screening mammography is obtained and read in conjunction with computer-aided detection. 3-D tomosynthesis as well as 2-D C view imaging is also performed. Comparison includes the most recent exam from 02/28/2017 and as far back as 02/08/2013. Breasts are composed of extremely dense tissue which limits mammographic sensitivity. Scattered bilateral punctate calcifications without worrisome interval change. No new suspicious mass, suspicious microcalcifications, architectural distortion, focal skin thickening, or new asymmetry is detected. Procedure Note Alexis Arora MD - 03/06/2018 FINDINGS: Bilateral full-field digital screening mammography is obtained and read inconjunction with computer-aided detection. 3-D tomosynthesis as well as2-D C view imaging is also performed. Comparison includes the most recentexam from 02/28/2017 and as far back as 02/08/2013. Breasts are composed of extremely dense tissue which limits mammographicsensitivity. Scattered bilateral punctate calcifications withoutworrisome interval change. No new suspicious mass, suspiciousmicrocalcifications, architectural distortion, focal skin thickening, ornew asymmetry is detected. IMPRESSION: No mammographic change indicative of malignancy. Routine screening isrecommended. BI-RADS CATEGORY: 2 - Benign finding. DENSITY: The breast tissue is extremely dense, an appearance which couldobscure a lesion on mammography. POS - [id number] us Richmond Sanchez MD IMG MG EXAMS Final Res ult documented in this encounter Visit Diagnoses Diagnosis Breast screening Breast screening, unspecified Breast screening Breast screening, unspecified documented in this encounter Care Teams Pile Driving Supervisor Relationship Specialty Start Date End Date Richmond Sanchez MD [address] [place] [address] Dr [place]z, [place] [address] PCP - General 07/15/17 documented as of this encounter Additional Source Comments The information contained in this document represents components of the legal health record. It is not the complete legal health record.[facility]
--- OUTSIDE RECORDS SUMMARY | 2025-07-15 14:42 | XMS_ITS | Encounter Summary ---
Author Organization [facility] Address [address] [place] [address] Phone Care Team Providers Care Foreign Service Teacher Name Role Phone Richmond Sanchez MD Primary Care Provider [phone] [phone] Encounter Details Date Type Department Care Team (Late st Contact Info) Description 12/21/2018 Ancillary Orders Virtual Department [address] [place] [address] Richmond Sanchez MD [address] [place] [address] [place] [address] Breast screening Social History Tobacco Use Types [...] MAMMOGRAM SCREENING WITH TOMOSYNTHESIS WITH CAD (BILATERAL) (03/12/2019 11:52 AM EDT) Anatomical Region Laterality Modality Breast Left, Breast Right, Breast Bilateral Bila teral Mammography 03/12/2019 2:41 PM EDT Impressions 03/12/2019 2:43 PM EDT Stable appearance relative to prior imaging. No findings suggestive of malignancy are seen. BI-RADS CATEGORY: 2 - Benign finding. DENSITY: The breast tissue is heterogeneously dense, an appearance which lowers the sensitivity of mammography. POS - [id number] Narrative 03/12/2019 2:43 PM EDT Full-field digital mammography is obtained with computer-aided detection. Comparison with prior imaging from 03/06/2018 is made with older imaging dating back as far as 02/08/2013 also reviewed. There is heterogeneous fibroglandular density evident in the breasts. In addition to 2-D C view imaging, tomosynthesis images are obtained in two projections of each breast. There are minor scattered punctate bilateral calcifications evident which significant.. No dominant soft tissue mass of concern, suspicious cluster of calcifications, significant interval skin changes, or architectural distortion is identified. Procedure Note Lobito Espinosa MD - 03/12/2019 Full-field digital mammography is obtained with computer-aided detection.Comparison with prior imaging from 03/06/2018 is made with older imagingdating back as far as 02/08/2013 also reviewed. There is heterogeneous fibroglandular density evident in the breasts. Inaddition to 2-D C view imaging, tomosynthesis images are obtained in twoprojections of each breast. There are minor scattered punctate bilateral calcifications evident whichsignificant.. No dominant soft tissue mass of concern, suspicious clusterof calcifications, significant interval skin changes, or architecturaldistortion is identified. IMPRESSION: Stable appearance relative to prior imaging. No findings suggestive ofmalignancy are seen. BI-RADS CATEGORY: 2 - Benign finding. DENSITY: The breast tissue is heterogeneously dense, an appearance whichlowers the sensitivity of mammography. POS - [id number] us Richmond Sanchez MD IMG MG EXAMS Final Res ult documented in this encounter Visit Diagnoses Diagnosis Breast screening Breast screening, unspecified Breast screening Breast screening, unspecified documented in this encounter Care Teams Foreign Service Teacher Relationship Specialty Start Date End Date Richmond Sanchez MD [address] [place] [address] Dr Reyez, [place] [address] PCP - General 07/15/17 documented as of this encounter Additional Source Comments The information contained in this document represents components of the legal health record. It is not the complete legal health record.[facility]
--- OUTSIDE RECORDS SUMMARY | 2025-07-15 14:42 | XMS_ITS | Encounter Summary ---
Author Organization [facility] Address [address] [place] [address] Phone Care Team Providers Care Grey Roll Worker Name Role Phone Richmond Sanchez MD Primary Care Provider [phone] [phone] Encounter Details Date Type Department Care Team (Late st Contact Info) Description 12/28/2021 Procedure Pass [facility] [address] [place] [address] Social History Tobacco Use Types Packs/Day Years [...] on filedocumented in this encounter Care Teams Grey Roll Worker Relationship Specialty Start Date End Date Richmond Sanchez MD [address] [place] [address] [place] [address] PCP - General 07/15/17 documented as of this encounter Additional Source Comments The information contained in this document represents components of the legal health record. It is not the complete legal health record.[facility]
--- OUTSIDE RECORDS SUMMARY | 2025-07-15 14:42 | XMS_ITS | Encounter Summary ---
Author Organization [facility] Address [address] [facility] [address] [place] [address] Phone Care Team Providers Care Experimental Plastics Fabricator Name Role Phone Richmond Sanchez MD Primary Care Provider [phone] [phone] Encounter Details Date Type Department Care Team (Late st Contact Info) Description 01/03/2023 Transcribe Orders Virtual Department [address] [place] [address] Richmond Sanchez MD [address] [place] [address] [place] [address] Breast screening (Primary Dx) Social History Tobacco Use Types Packs/Day Years [...] MAMMOGRAM SCREENING WITH TOMOSYNTHESIS WITH CAD (BILATERAL) (06/27/2023 11:50 AM EDT) Anatomical Region Laterality Modality Breast Left, Breast Right, Breast Bilateral Bila teral Mammography 07/03/2023 5:54 PM EDT Impressions 07/03/2023 5:56 PM EDT No findings suspicious for malignancy are identified. In the absence of a worrisome palpable abnormality, annual screening mammography is recommended. BI-RADS CATEGORY: 1 - Negative. DENSITY: The breast tissue is heterogeneously dense, which could obscure a lesion on mammography. Narrative 07/03/2023 5:56 PM EDT AVAILABLE COMPARISON: 03/29/2022 through 02/28/2017 Bilateral 3-D tomosynthesis with 2-D reconstructions in the CC and MLO projection. Computer-aided detection system was utilized. No new mass, asymmetry, architectural distortion or suspicious calcifications have become apparent in either breast. Procedure Note Brandon Sarkar MD - 07/03/2023 AVAILABLE COMPARISON: 03/29/2022 through 02/28/2017 Bilateral 3-D tomosynthesis with 2-D reconstructions in the CC and MLOprojection. Computer-aided detection system was utilized. No new mass, asymmetry, architectural distortion or suspiciouscalcifications have become apparent in either breast. IMPRESSION: No findings suspicious for malignancy are identified. In the absence of aworrisome palpable abnormality, annual screening mammography isrecommended. BI-RADS CATEGORY: 1 - Negative. DENSITY: The breast tissue is heterogeneously dense, which could obscurea lesion on mammography. us Richmond Sanchez MD IMG MG EXAMS Final Res ult documented in this encounter Visit Diagnoses Diagnosis Breast screening- Primary Breast screening, unspecified Breast screening Breast screening, unspecified documented in this encounter Care Teams Experimental Plastics Fabricator Relationship Specialty Start Date End Date Ricmhond Sanchez MD [address] [place] [address] [place] [address] PCP - General 07/15/17 documented as of this encounter Additional Source Comments The information contained in this document represents components of the legal health record. It is not the complete legal health record.[facility]
== END 2025-07-15 11:54 | disposition home or self-care (01) ==
LOC: HO.MAMMO 11:53
PROVIDERS: PCP Internal Medicine; Visit Provider Internal Medicine
DX: Z12.31 Encounter for screening mammogram for malignant neoplasm of breast (principal)
CPT/HCPCS: 77063; 77067

== ENCOUNTER → 2025-07-15 12:00 | Outpatient (BNV) | payer OTHER, SELFPAY | PROVIDERS: PCP Internal Medicine; Visit Provider Internal Medicine | DX: Z12.31 Encounter for screening mammogram for malignant neoplasm of breast (principal) | CPT/HCPCS: 77063; 77067 ==

== ENCOUNTER 2025-08-22 13:15 | Outpatient (REF) | payer OTHER, SELFPAY ==
--- NOTE | ~2025-08-22 | CT_ITS ---
CLINICAL HISTORY: F17.210 - Nicotine dependence, cigarettes, uncomplicated CT lung cancer screening (LDCT) Comparison: Chest CT from 07/09/2024 Technique: Axial CT images of the chest using low-dose technique. Referring provider counseled the patient on shared decision-making for LDCT screening. Additional counseling was provided on smoking cessation. Effective radiation dose total: DLP 62.7 mGycm, CTDIvol 1.7 mGy. Findings: Lung: No significant change in 3 mm solid pulmonary nodules including periphery of the right upper lobe. 3 mm pulmonary nodules unchanged in the posterior basal segment of the right lower lobe (399 of series 4). Mild bibasilar atelectasis and scarring are redemonstrated. Mild emphysematous changes again noted. Coronary artery calcifications: Mild Limited upper abdomen: Not significantly change by noncontrast imaging. Other: Mild/borderline cardiomegaly redemonstrated. Fusion of the sternum and manubrium with chronic appearing deformity of the imaged sternum. Accentuated mild degenerative changes are redemonstrated imaged shoulders and imaged spine. IMPRESSION: Lung rads 2. Recommend continue annual screening with low-dose chest CT in 12 months. This document has been electronically signed by: Pepe Sears MD on 08/23/2025 02:59:18
--- OUTSIDE RECORDS SUMMARY | 2025-08-22 17:55 | XMS_ITS | Encounter Summary ---
Author Organization [facility] Address [address] [place] [address] Phone Care Team Providers Care Medicine Man Name Role Phone Richmond Sanchez MD Primary Care Provider [phone] [phone] Encounter Details Date Type Department Care Team (Late st Contact Info) Description 2020 Procedure Pass [facility] [address] [place] [address] Social History Tobacco Use Types Packs/Day Years [...] on filedocumented in this encounter Care Teams Medicine Man Relationship Specialty Start Date End Date Richmond Sanchez MD [address] [place] [address] [place] [address] PCP - General 07/15/17 documented as of this encounter Additional Source Comments The information contained in this document represents components of the legal health record. It is not the complete legal health record.[facility]
--- OUTSIDE RECORDS SUMMARY | 2025-08-22 17:55 | XMS_ITS | Encounter Summary ---
Author Organization [facility] Address [address] [facility] [address] [facility] [address] [place] [address] Phone Care Team Providers Care Adult School Counselor Name Role Phone Richmond Sanchez MD Primary Care Provider [phone] [phone] Encounter Details Date Type Department Care Team (Late st Contact Info) Description 01/03/2023 Transcribe Orders Virtual Department [address] [place] [address] Richmond Sanchez MD [address] [place] [address] [facility] [place] [address] Breast screening (Primary Dx) Social History Tobacco [...] unspecified documented in this encounter Care Teams Adult School Counselor Relationship Specialty Start Date End Date Richmond Sanchez MD [address] [place] [address] [place] [address] PCP - General 07/15/17 documented as of this encounter Additional Source Comments The information contained in this document represents components of the legal health record. It is not the complete legal health record.[facility]
--- OUTSIDE RECORDS SUMMARY | 2025-08-22 17:55 | XMS_ITS | Data Portability ---
Author Organization [facility] - [facility], [facility] Address [address] [place] [address] Care Team Providers Care Navigation Teacher Name Role Phone RODO ALE Primary Care Provider Assessment Encounter Date Assessment Date Assessment LastModified [...] bilateral hand rm 110 2024 025 [email or web address] [facility], [address], [place], [address], 5 10:59:35 XR, knee, 4 or more view - room 210 lt knee 4v cw 2023 024 [email or web address] [facility], [address], [place], [address], 09:31:33 Medication Orders meloxicam 15 mg tablet 2023 024 [email or web address] [id number], [address] [place], [address], 16:02:26 Patient TargetsNo targets recorded. Patient InstructionsNo instructions recorded. Reason for Referral None Reported. Results Created Date Observation Date Name Description Value Unit Range Abnormal Flag Note LastModifiedBy Organization Detail LastModifiedTime 07/05/2007/05/2024 XR, knee, 4 or more view [email or web address]:/ [email or web address] ?Encry pted=s hAaTro YD8dLq bEUv6g %2BXZw aYqtaq 0bqfl% 2Fg9IQ a4ajBk vP9nXo QUaueC m3YtLR FvZlgJ JJ8mAn HZtai3 2j0091 AC0Kqa 36BV6C mKiQtr MwF INTERFACE [facility] [address] [facility] [address], [place], [address], 07/05/2024 11:59:50 07/05/20 24 07/05/2024 XR, knee, 4 or more view [email or web address]:/ [email or web address] ?Encry pted=s hAaTro YD8dLq bEUv6g %2BXZw aYqtaq 0bqfl% 2Fg9IQ a4ajBk vP9nXo QUaueC m3YtLR FvZl JJ8mAn HZtai3 4l2575 AC0Kqa 36BV6C mKiQtr MwF INTERFACE [facility] [address] [facility], [place], [address], 07/05/2024 11:59:52 11/30/19 25 11/29/2024 XR, hand, 3 or more view [email or web address]:/ [email or web address] ?Encry pted=s hAaTro YD8dLq bEUv6g %2BXZw aYqtaq 0bqfl% 2Fg9IQ a4ajBk vP9nXo QUaueC m3YtLR FvZlgJ JJ8mAn HZtai3 4d9284 AC0Kqb XuBUaO mKiQtr MwF INTERFACE [facility] [address] [facility] [address], [place], [address], 11/29/2024 10:43:50 11/30/19 25 11/29/2024 XR, hand, 3 or more view http:/ [email or web address] ?Encry pted=s hAaTro YD8dLq bEUv6g %2BXZw aYqtaq 0bqfl% 2Fg9IQ a4ajBk vP9nXo QUaueC m3YtLR FvZlgJ JJ8mAn HZtai3 8e1912 AC0Kqb XuBUaO mKiQtr MwF INTERFACE [facility] [address] [facility] [address], [place], [address], 11/29/2024 10:43:52 Result Notes Documentation Provider Name and Address Organization Details Recorded Time Xr, Knee, 4 Or More View : [email or web address]? Encrypted=pnSbTibWI4yXwsQ Uv6g%7GAZonHjneq4llhe%2Fg 3WWi4ojLngQ5uAjRAdshTe0Tb YIFgLtrIZH8yOcSUfvd81o676 2EX0Vlc84ZH1WhQwHfpEaA Not Available [employer] 07/05/2024 11:59: 51 Xr, Knee, 4 Or More View : [email or web address]? Encrypted=qeQwMwgBG2bGkaZ Uv6g%6EFAaiNvbef9mdjs%2Fg 4UIw2aiYbjB6xEqHDiqdBg3Mw ALZwQkjZRD6sUaYWalc98a691 9KT6Rtn04WX0BpVnNejZiM Not Available [facility] 07/05/2024 11:59: 53 Xr, Hand, 3 Or More View : [email or web address]? Encrypted=kdEiDlkAZ1gKrtO Uv6g%1NYCexCpbwr1prrs%2Fg 5KVu4pvYpnX8rGiABeziNh0Tv IRPsDwbOLZ8jNhQNkwu23m877 5CR8VnkKuPGgMrOcDlrIdX Not Available [facility] 11/29/2024 10:43: 51 Xr, Hand, 3 Or More View : [email or web address]? Encrypted=hfEmCuzIE8cUhlM Uv6g%0ZQYrfRdcpw3zoro%2Fg 9AIq4ezKjcB1aHaMKfmzHh4Ce DKHuVrsVVO8yWsAVlwq28i608 2HU0OwpBkANaFnAeNceZcX Not Available [facility] 11/29/2024 10:43: 53 Problems Name Problem SNOMED Code Status Onset Date Resolution Date Notes Provider Name and Address Organization Details Recorded Time Pain of left knee joint 4296321694626 07 Active 2023 [facility] 4 11:51:58 Osteoarthri tis of left knee joint 3003891804882 09 Active 2023 [facility] 12:27:26 Problem Notes None recorded. Procedures Surgical History Date Name Laterality Status Provider Name and Address Organization Details Recorded Time 5 Small Joint Kenalog Injection, L/R completed Amish Mondragon PA-C [address], [place], [address], [facility] 11/29/2024 11:11:20 5 JZMulti Trigger Finger Injection completed Amish Mondragon PA-C [address], [place], [address], [facility] 11/29/2024 11:11:03 Imaging Results None recorded. Procedure Notes None recorded. Medical Equipment None [...] completed Not Available Not Available Not Available Lj COVID-19 Ag Self Test kit TEST DIRECTED TODAY 07/05 completed Not Available Not Available Not Available Vitals Date Recorded Body height Body mass index (BMI) Body weight Provider Name and Address Organization Details Last Updated DateTime 11/29/2024 172.72 cm 18.5 kg/m2 35861.27 g Christine Woodruff [facility] 11/29/2024 10:33:22 Date Recorded Body height Body mass index (BMI) Body weight Provider Name and Address Organization Details Last Updated DateTime 05/10/2024 172.72 cm 18.5 kg/m2 50850.27 g JOSE ELIAS HEBERT [facility] 05/10/2024 14:34:33 Date Recorded Body height Body mass index (BMI) Body weight Provider Name and Address Organization Details Last Updated DateTime 07/05/2024 172.72 cm 18.5 kg/m2 61993.27 g linda bowser [facility] 07/05/2024 11:51:34 Date Recorded Body height Body mass index (BMI) Body weight Provider Name and Address Organization Details Last Updated DateTime 07/15/2024 172.72 cm 18.5 kg/m2 29184.27 g SHERLEY NARANJO [facility] 07/15/2024 17:33:14 Social History None recorded. Functional Status None recorded. Mental Status None recorded. Family History Nothing Reported. Medical History No medical history recorded. Gynecological HistoryNo gynecological history recorded. Obstetrics History GPAL:G 0 P 0 0 0 0 Past Encounters Encounter ID Performer Location Encounter Start Date Encounter Closed Date Diagnosis/Indication Diagnosis SNOMED-CT Code Diagnosis ICD10 Code Diagnosis IMO Codes Diagnosis Note [id number] JOHN Stevenson [address] [address] 05/10/2024 14:25:47 06/14/2024 08:52:52 [id number] JOHN Ring [address] [place] [address] 07/05/2024 11:26:38 07/29/2024 09:31:33 Pain of left knee joint 3401937262 36930 M25.562 Osteoarthr itis of left knee joint 4085188359 52347 M17.12 [id number] MD Toñito Estrada [address] [place] [address] 07/15/2024 17:05:17 08/08/2024 13:37:02 Lumbar radiculopathy 649121466 M54.16 [id number] JOHN [facility] [address] [place] [address] 11/29/2024 10:09:54 12/13/2024 15:00:21 Pain of bilateral hands 3866912746 0175460 M79.641 M79.642 [id number] Health Concerns Section Related Observation LastModified by Organization Detai ls LastModified Time None Recorded Concern Status LastModified by Organization Details LastModified Time None Recorded Advance Directives Directive None Recorded Payers Insurance Date Sequence Insurance Name Policy Number Policy Alcala Covered Member ID Alcala Member ID Guarantor Name 11/28/2024 1 [facility] HEALTH NET PLAN (MEDICAID HMO) MARCUS Cadena [id number] Sally Cadena Notes Date Note Type Note [...] by me and is located in the patient s chart. Examination: Alert and oriented 3. No acute distress. Nonantalgic gait left finger [...] instability. X-rays ordered, obtained and reviewed at [facility] none Impression/Plan:Findin gs and situation discussed with patient. Overall patient is doing well. At this point, we will hold off on cortisone injection. if her symptoms exacerbate, then she will return for possible corticosteroid injection. She is provided with a handout. Amish Mondragon PA-C [address] [facility] [address] [facility], [place], [address], [facility] [place] [facility] 05/10/2024 14:55:32 07/05/2024 text/html I am [...] catching, locking, and giving way. She takes tzcs-kgh-tvzychm medication for her pain. She is here today for treatment recommendations. PMH/PSH/MEDS/ALL/FMH/S OC HX/ROS are reviewed in detail per my medical intake sheet. General Exam: Vital signs are as noted below Mental status: Alert and lucid. Normal insight, affect and grooming. ROOMING HOUSE OPERATOR: Gross motor coordination is intact. No spasticity or clonus noted. EXAMINATION: The patient is well appearing and in no apparent distress. Alert and oriented x3. Gait is symmetric. Left knee reveals no deformity upon inspection. No joint effusion, edema, erythema, ecchymosis, or lesions. Neurovascularly intact. No localized tenderness. ROM is full and pain free. Crepitus noted. Stability intact with anterior, posterior, and varus/valgus stress at both 0 and 30 degrees of flexion. Positive patella grind. 5/5 strength. Calf/leg compartments soft and compressible. Left hip reveals no obvious deformity upon inspection. No edema, erythema, ecchymosis, or lesions. Neurovascularly intact. No localized tenderness. ROM full in all planes. Negative impingement sign, Primo's, Stinchfield test, and straight leg raise. No instability. 5/5 strength. Calf/leg compartments soft and compressible. X-rays ordered, obtained and reviewed at [facility] today include an AP standing, King, [...] effects have been reviewed. She will hold vvzs-zfa-ffishwg NSAIDs while taking this medication. We also discussed cortisone and viscosupplementation. Activity modification was discussed. The patient is unfortunately dealing with significant low back pain and right lower extremity radiculopathy. She has received an injection at [email or web address] without much benefit. She prefers to focus on her lower back issue prior to proceeding with additional treatment for her knee. If her knee pain increases she will call the office in order to schedule an injection. All questions answered. 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 IMAGING: MRI lumbar spine reviewed. Study notable for spinal stenosis spondylolisthesis isolated to the L4-5 level. Otherwise some moderate spondylosis L5-S1 only. X-RAY REPORT: X-rays ordered, obtained and reviewed at [facility]. Collin Parekh MD [address] [place] [address] [address], [place], [address], [facility] 07/15/2024 20:22:13 11/29/2024 text/html [...] by me and is located in the patient s chart. Examination: Alert and oriented 3. No acute distress. Nonantalgic gait left thumb [...] instability. X-rays ordered, obtained and reviewed at [facility] 3 views bilateral hands reveals degenerative changes [...] tolerated seizure well. Amish Mondragon PA-C [address] [facility] [address], [place], [address], [facility] [place] [facility] 11/29/2024 11:11:38 OBGyn Episode No OBEpisode recorded.
--- OUTSIDE RECORDS SUMMARY | 2025-08-22 17:55 | XMS_ITS | Encounter Summary ---
Author Organization [facility] Address [address] [place] [address] Phone Care Team Providers Care Fraternity Adviser Name Role Phone Richmond Sanchez MD Primary Care Provider [phone] [phone] Encounter Details Date Type Department Care Team (Late st Contact Info) Description 04/02/2024 Procedure Pass [facility], [address] [address] Social History Tobacco Use Types Packs/Day Years [...] on filedocumented in this encounter Care Teams Fraternity Adviser Relationship Specialty Start Date End Date Richmond Sanchez MD [address] [place] [address] [place] [address] PCP - General 07/15/17 documented as of this encounter Additional Source Comments The information contained in this document represents components of the legal health record. It is not the complete legal health record.[facility]
--- OUTSIDE RECORDS SUMMARY | 2025-08-22 17:55 | XMS_ITS | Encounter Summary ---
Author Organization [facility] Address [address] [place] [address] Phone Care Team Providers Care Hairspring Cutter Name Role Phone Richmond Sanchez MD Primary Care Provider [phone] [phone] Encounter Details Date Type Department Care Team (Late st Contact Info) Description 12/10/2019 Ancillary Orders Virtual Department [address] [place] [address] Richmond Sanchez MD [address] [place] [address] [place] [address] Breast screening Social History Tobacco Use Types [...] which lowers the sensitivity of mammography. POS -[id number] Narrative 03/17/2020 12:59 PM EDT Bilateral full-field [...] appearance whichlowers the sensitivity of mammography. POS -[id number] Richmond Sanchez MD IMG MG EXAMS Final Res ult documented in this encounter Visit Diagnoses Diagnosis Breast screening Breast screening, unspecified Breast screening Breast screening, unspecified documented in this encounter Care Teams Hairspring Cutter Relationship Specialty Start Date End Date Richmond Sanchez MD [address] [place] [address] [place] [address] PCP - General 07/15/17 documented as of this encounter Additional Source Comments The information contained in this document represents components of the legal health record. It is not the complete legal health record.[facility]
--- OUTSIDE RECORDS SUMMARY | 2025-08-22 17:55 | XMS_ITS | Encounter Summary ---
Author Organization [facility] Address [address] [place] [address] Phone Care Team Providers Care Well Logging Captain Mud Analysis Name Role Phone Richmond Sanchez MD Primary Care Provider [phone] [phone] Encounter Details Date Type Department Care Team (Late st Contact Info) Description 12/15/2017 Ancillary Orders Virtual Department [address] [place] [address] Richmond Sanchez MD [address] [place] [address] [place] [address] Breast screening Social History Tobacco Use Types [...] obscure a lesion on mammography. POS - [id number] Narrative 03/06/2018 6:45 PM EDT FINDINGS: Bilateral [...] couldobscure a lesion on mammography. POS - [id number] Richmond Sanchez MD IMG MG EXAMS Final Res ult documented in this encounter Visit Diagnoses Diagnosis Breast screening Breast screening, unspecified Breast screening Breast screening, unspecified documented in this encounter Care Teams Well Logging Captain Mud Analysis Relationship Specialty Start Date End Date Richmond Sanchez MD [address] [place] [address] [place] [address] PCP - General 07/15/17 documented as of this encounter Additional Source Comments The information contained in this document represents components of the legal health record. It is not the complete legal health record.[facility]
--- OUTSIDE RECORDS SUMMARY | 2025-08-22 17:55 | XMS_ITS | Encounter Summary ---
Author Organization [facility] Address [address] [place] [address] Phone Care Team Providers Care Hydro Operator Name Role Phone Richmond Sanchez MD Primary Care Provider [phone] [phone] Encounter Details Date Type Department Care Team (Late st Contact Info) Description 01/03/2023 Procedure Pass [facility], [facility] [address] [place] [address] Social History Tobacco Use Types Packs/Day Years [...] on filedocumented in this encounter Care Teams Hydro Operator Relationship Specialty Start Date End Date Richmond Sanchez MD [address] [place] [address] [place] [address] PCP - General 07/15/17 documented as of this encounter Additional Source Comments The information contained in this document represents components of the legal health record. It is not the complete legal health record.[facility]
--- OUTSIDE RECORDS SUMMARY | 2025-08-22 17:55 | XMS_ITS | Clinical Summary ---
Author Organization [facility] Address [address] [place] [address] Phone Care Team Providers Care Aviation Warfare Systems Operator Name Role Phone Richmond Sanchez MD Primary Care Provider [phone] [phone] Family History Medical History Relation Comments Breast [...] file Medical Devices Not on file Insurance [facility] [address] [place] [address] [place] [address] [place] [address] [place] [address] [address] [address] [address] ACO [facility] ACO Care Teams Aviation Warfare Systems Operator Relationship Specialty Start Date End Date Richmond Sanchez MD [address] [place] [address] Dr [address] [place] [address] PCP - General 07/15/17 Additional Source Comments The information contained in this document represents components of the legal health record. It is not the complete legal health record.[facility]
--- OUTSIDE RECORDS SUMMARY | 2025-08-22 17:55 | XMS_ITS | Encounter Summary ---
Author Organization [facility] Address [address] [place] [address] Phone Care Team Providers Care Inventory Assistant Name Role Phone Richmond Sanchez MD Primary Care Provider [phone] [phone] Encounter Details Date Type Department Care Team (Late st Contact Info) Description 12/21/2018 Ancillary Orders Virtual Department [address] [place] [address] Richmond Sanchez MD [address] [place] [address] [place] [address] Breast screening Social History Tobacco Use Types [...] lowers the sensitivity of mammography. POS - [id number] Narrative 03/12/2019 2:43 PM EDT Full-field digital [...] whichlowers the sensitivity of mammography. POS - [id number] Richmond Sanchez MD IMG MG EXAMS Final Res ult documented in this encounter Visit Diagnoses Diagnosis Breast screening Breast screening, unspecified Breast screening Breast screening, unspecified documented in this encounter Care Teams Inventory Assistant Relationship Specialty Start Date End Date Richmond Sanchez MD [address] [place] [address] [place] [address] PCP - General 07/15/17 documented as of this encounter Additional Source Comments The information contained in this document represents components of the legal health record. It is not the complete legal health record.[facility]
--- OUTSIDE RECORDS SUMMARY | 2025-08-22 17:55 | XMS_ITS | Encounter Summary ---
Author Organization [facility] Address [address] [place] [address] Phone Care Team Providers Care Oil Well Directional Surveyor Name Role Phone Richmond Sanchez MD Primary Care Provider [phone] [phone] Encounter Details Date Type Department Care Team (Late st Contact Info) Description 12/28/2021 Procedure Pass [facility], [facility] [address] [place] [address] Social History Tobacco Use Types Packs/Day Years [...] on filedocumented in this encounter Care Teams Oil Well Directional Surveyor Relationship Specialty Start Date End Date Richmond Sanchez MD [address] [place] [address] [place] [address] PCP - General 07/15/17 documented as of this encounter Additional Source Comments The information contained in this document represents components of the legal health record. It is not the complete legal health record.[facility]
--- OUTSIDE RECORDS SUMMARY | 2025-08-22 17:55 | XMS_ITS | Encounter Summary ---
Author Organization [facility] Address [address] [place] [address] Phone Care Team Providers Care Room Service Server Name Role Phone Richmond Sanchez MD Primary Care Provider [phone] [phone] Encounter Details Date Type Department Care Team (Late st Contact Info) Description 2020 Ancillary Orders Virtual Department [address] [place] [address] Richmond Sanchez MD [address] [place] [address] [place] [address] Breast screening Social History Tobacco Use Types [...] unspecified documented in this encounter Care Teams Room Service Server Relationship Specialty Start Date End Date Richmond Sanchez MD [address] [place] [address] [address] [place] [address] PCP - General 07/15/17 documented as of this encounter Additional Source Comments The information contained in this document represents components of the legal health record. It is not the complete legal health record.[facility]
== END 2025-08-22 13:16 | disposition home or self-care (01) ==
LOC: HO.CT 13:15
PROVIDERS: PCP Internal Medicine; Visit Provider Physician Assistant Medical
DX: F17.210 Nicotine dependence, cigarettes, uncomplicated (principal)
CPT/HCPCS: 71271

== ENCOUNTER → 2025-08-22 13:17 | Outpatient (BNV) | payer OTHER, SELFPAY | PROVIDERS: PCP Internal Medicine; Visit Provider Radiology Neuroradiology | DX: F17.210 Nicotine dependence, cigarettes, uncomplicated (principal) | CPT/HCPCS: 71271 ==